=== PATIENT | female | born 2000 | race Caucasian/White ===

== ENCOUNTER 2023-01-22 11:39 | Emergency (ER) | payer BC ==
[2023-01-22 12:16] LABS: HCG UR QUAL NEGATIVE
[2023-01-22 12:17] LABS: CLARITY,URINE HAZY (CLEAR)
[2023-01-22 12:18] LABS: BILIRUBIN,URINE NEGATIVE (NEGATIVE); GLUCOSE, URINE (UA) NEGATIVE (NEGATIVE); KETONES,URINE (UA) NEGATIVE (NEGATIVE); LEUKOCYTE ESTERASE, URINE MODERATE (NEGATIVE); NITRITE,URINE NEGATIVE (NEGATIVE); OCCULT BLOOD,URINE LARGE (NEGATIVE); PROTEIN,URINE NEGATIVE (NEGATIVE); UROBILINOGEN,URINE 0.2 (NORMAL) E.U./dL (NORMAL)
[2023-01-22 12:32] LABS: BACTERIA,URINE Moderate /HPF (None Seen); SQUAMOUS EPITHELIAL CELL,UR MANY Squamous (<= Few); WBC,URINE >25 /HPF (0-5)
--- NOTE | 2023-01-22 12:34 | ED Physician Documentation ---
PD HPI FEMALE - Stated complaint Stated Complaint: - Chief complaint Chief Complaint: Abd Pain - History obtained from History obtained from: Patient - History of Present Illness Timing - onset: How many days ago (few) Timing - duration: Days (few) Timing - details: Gradual onset, Still present, Waxing and waning Associated symptoms: Vaginal bleeding (lightly), Dysuria (last week but improved on Keflex.). No: Fever, Vaginal discharge Contributing factors: Sexually active. No: control, Exposed to STD Recently seen: Clinic (had dysuria last week and Dx with UTI, on Keflex with improved symtoms. Now with Left pelvic pains for few days.) Review of Systems Constitutional: denies: Fever, Chills GI: denies: Vomiting, Constipation, Diarrhea PD PAST MEDICAL HISTORY - Present Medications Home Medications: Ambulatory Orders Medication Instructions Recorded Confirmed cephALEXin [Keflex] 500 mg PO Q6H 01/22/23 01/22/23 - Allergies Allergies/Adverse Reactions: Allergies Allergy/AdvReac Type Severity Reaction Status Date / Time No Known Drug Allergies Allergy Verified 01/22/23 11:46 PD ED PE NORMAL - Vitals Vital signs reviewed: Yes - General General: Alert and oriented X 3, No acute distress, Well developed/nourished - Abdomen Abdomen: Normal bowel sounds, Soft, Non distended, No organomegaly, Other (tender LLQ focally with some guarding but no percussion nor rebound tenderness. Right lower minimally tender. ) - Female Female : Deferred - Derm Derm: Normal color, Warm and dry - Neuro Neuro: Alert and oriented X 3, Normal speech Results - Vitals Vitals: Vital Signs - 24 hr 01/22/23 01/22/23 11:42 15:06 Temperature 36.5 C Heart Rate 76 80 Respiratory 16 16 Rate Blood Pressure 135/80 H 113/82 H O2 Saturation 95 100 Oxygen O2 Source Room air - Labs Labs: Laboratory Tests 01/22/23 01/22/23 11:38 11:38 Urine Color YELLOW Urine Clarity HAZY Urine pH 7.0 Ur Specific [place] 1.020 Urine Protein NEGATIVE Urine Glucose (UA) NEGATIVE Urine Ketones NEGATIVE Urine Occult Blood LARGE H Urine Nitrite NEGATIVE Urine Bilirubin NEGATIVE Urine Urobilinogen 0.2 (NORMAL) Ur Leukocyte Esterase MODERATE H Urine RBC 11-25 H Urine WBC >25 H Ur Squamous Epith Cells MANY Squamous H Urine Bacteria Moderate H Ur Microscopic Review INDICATED Urine Culture Comments NOT INDICATED Urine HCG, Qual NEGATIVE - Rads (name of study) pelvic US Relevant Findings:: Other (initial report from Tech is resolving cysts left side. Normal blood flow. ) PD Medical Decision Making - ED course Complexity details: reviewed results (HCG negative. Ultrasound showing left cysts small. No free fluid on report. Normal blood flow. ), considered differential (pain left pelvic area. Can get HCG as she had period last 2 months ago. Can get US to eval ovaries. No intestinal symptoms so I do not feel CT needed. Currently being treated for UTI. ), d/w patient Departure - Departure Disposition: 01 Home, Self Care Clinical Impression: Lower abdominal pain Ovarian cyst Qualifiers: Laterality: left Qualified Code(s): N83.202 - Unspecified ovarian cyst, left side Condition: Stable Record reviewed to determine appropriate education?: Yes Instructions: ED Cyst Ovarian Comments: Your test was negative. The pelvic ultrasound showed what appeared to be a small resolving ovarian cyst on that side. It likely had a small amount of leaking/deflating with a small amount of free fluid around it. There was good blood flow to the ovary and no other abnormality seen. At this point I would suggest just some regular anti-inflammatories such as ibuprofen or naproxen 2 to 3 tablets twice daily with food for the next 3 to 5 days. Add Tylenol every 4-6 hours if needed for pain. I would anticipate improvement over the next few days. Follow-up with your primary care or return to the ER if not improving or worsening. Forms: PCP List Discharge Date/Time: 01/22/23 15:16
[2023-01-22 15:19] VITALS: BP 113/82; O2SAT 100
--- NOTE | 2023-01-22 15:37 | Ultrasound Report ---
PROCEDURE: Pelvic w/Doppler Complete INDICATIONS: pelvic pain, L TECHNIQUE: Transabdominal images were obtained of the pelvis using grayscale and color Doppler images . Spectral Doppler also obtained. COMPARISON: None FINDINGS: Uterus: 7.5 x 3.6 x 4.8 cm. Estimated volume is 68 cc. Anteverted positioning. Homogenous echotexture . Endometrium measures 7 mm, within normal limits for age. Ovaries: Right ovary measures a volume of 8 cc. Left ovary measures a volume of 14 cc. Physiologic ap pearing cysts. Color and spectral Doppler: flows are documented Other: No pathologic free fluid. IMPRESSION: No evidence of ovarian torsion. Physiologic appearing uterus on transabdominal evaluation. Reviewed by: Gurdeep Crespo MD on 01/22/2023 3:36 PM PDT Approved by: Gurdeep Crespo MD on 01/22/2023 3:36 PM PDT Station ID: [id number]
== END 2023-01-22 15:16 | disposition home or self-care (01) ==
LOC: ED 11:39
DX: N83.202 Unspecified ovarian cyst, left side (principal)
CPT/HCPCS: 81001; 81003; 81025; 87086; 93975; 99283; 99284

== ENCOUNTER 2023-01-28 17:08 | Emergency (ER) | payer BC ==
[2023-01-28 17:16] VITALS: BP 136/68; O2SAT 99
[2023-01-28] MEDS ORDERED: SODIUM CHLORIDE 0.9% 1,000 ML IV STA (17:32)
[2023-01-28 17:35] LABS: BASOPHILS % (AUTO) 0.5 %; EOSINOPHILS # (AUTO) 0.1 10^3/uL (0.0-0.7); EOSINOPHILS % (AUTO) 1.5 %; HCT - HEMATOCRIT 40.6 % (37.0-47.0); HGB - HEMOGLOBIN 13.8 g/dL (12.0-16.0); LYMPHOCYTES # (AUTO) 2.8 10^3/uL (1.5-3.5); LYMPHOCYTES % (AUTO) 35.7 %; MEAN CORPUSCULAR HEMOGLOBIN 27.9 pg (27.0-31.0); MEAN CORPUSCULAR VOLUME 82.2 fL (81.0-99.0); MEAN PLATELET VOLUME 8.6 fL (7.9-10.8); MONOCYTES # (AUTO) 0.7 10^3/uL (0.0-1.0); MONOCYTES % (AUTO) 8.2 %; NEUTROPHILS # (AUTO) 4.3 10^3/uL (1.5-6.6); PLT - PLATELET COUNT 260 10^3/uL (130-450); RED BLOOD COUNT 4.94 10^6/uL (4.20-5.40); RED CELL DISTRIBUTION WIDTH 12.2 % (12.0-15.0); WHITE BLOOD COUNT 7.9 x10^3/uL (4.8-10.8)
[2023-01-28 17:35] LABS: BILIRUBIN,URINE NEGATIVE (NEGATIVE); GLUCOSE, URINE (UA) NEGATIVE (NEGATIVE); KETONES,URINE (UA) NEGATIVE (NEGATIVE); LEUKOCYTE ESTERASE, URINE NEGATIVE (NEGATIVE); NITRITE,URINE NEGATIVE (NEGATIVE); OCCULT BLOOD,URINE LARGE (NEGATIVE); PH,URINE 5.5 PH (5.0-7.5); PROTEIN,URINE TRACE mg/dL (NEGATIVE); UROBILINOGEN,URINE 0.2 (NORMAL) E.U./dL (NORMAL)
[2023-01-28 17:41] LABS: CLARITY,URINE CLEAR (CLEAR); HCG UR QUAL NEGATIVE
[2023-01-28 17:42] LABS: BACTERIA,URINE Moderate /HPF (None Seen); SQUAMOUS EPITHELIAL CELL,UR MANY Squamous (<= Few)
[2023-01-28 17:52] LABS: ALBUMIN 4.3 g/dL (3.2-5.5); ALBUMIN/GLOBULIN RATIO 1.5 (1.0-2.2); BILIRUBIN,TOTAL 0.5 mg/dL (0.2-1.0); CALCIUM 9.4 mg/dL (8.5-10.3); CREATININE 0.5 mg/dL (0.6-1.3); POTASSIUM 3.7 mmol/L (3.5-4.5); TOTAL PROTEIN 7.2 g/dL (6.4-8.9)
[2023-01-28] MEDS ORDERED: TRANEXAMIC ACID 1,000 MG in SODIUM CHLORIDE 0.9% 100ML 100 ML IV STA (18:08)
--- NOTE | 2023-01-28 18:27 | ED Physician Documentation ---
History of Present Illness - Stated complaint Stated Complaint: - Chief complaint Chief Complaint: Abd Pain - History obtained from History obtained from: Patient - History of Present Illness Timing: How many weeks ago (1) Pain level max: 0 Pain level now: 0 - Additonal information Additional information: 22-year-old female presents to the emergency department stating that for about the past week she has had vaginal bleeding. She states that it she had a light menses about 3 weeks ago, but now has been bleeding fairly steadily for about 6 days. She uses several pads per day. She is not lightheaded or dizzy. She recently moved here from [place]. She was seen here last week and had a pelvic ultrasound which was normal except for a left-sided ovarian cyst. She is not having any significant pelvic pain, more of the bleeding. No change in sexual partners. No STD exposure. Review of Systems Constitutional: denies: Fever, Chills Respiratory: denies: Cough GI: denies: Nausea, Vomiting, Diarrhea : denies: Dysuria, Frequency, Hesitancy, Now EGA Skin: denies: Rash Musculoskeletal: denies: Neck pain, Back pain Neurologic: denies: Headache PD PAST MEDICAL HISTORY - Past Medical History Past Medical History: Yes Cardiovascular: High cholesterol Respiratory: None Neuro: None Endocrine/Autoimmune: None GI: None HEAD NURSE: Ovarian cysts : None HEENT: None Psych: None Musculoskeletal: None Derm: None - Past Surgical History Past Surgical History: Yes General: Appendectomy - Present Medications Home Medications: Ambulatory Orders Medication Instructions Recorded Confirmed cephALEXin [Keflex] 500 mg PO Q6H 01/22/23 01/28/23 Tranexamic Acid 1,300 mg PO TID PRN #30 tablet 01/28/23 - Allergies Allergies/Adverse Reactions: Allergies Allergy/AdvReac Type Severity Reaction Status Date / Time No Known Drug Allergies Allergy Verified 01/28/23 17:11 - Living Situation Living Situation: reports: With family Living Arrangement: reports: At home - Social History Does the pt smoke?: No Smoking Status: Never smoker Does the pt drink ETOH?: Yes Does the pt have substance abuse?: No - Immunizations Immunizations are current?: Yes PD ED PE NORMAL - Vitals Vital signs reviewed: Yes - General General: Alert and oriented X 3, No acute distress - HEENT HEENT: Moist mucous membranes - Neck Neck: Supple, no meningeal sign - Cardiac Cardiac: RRR, Strong equal pulses - Respiratory Respiratory: No respiratory distress, Clear bilaterally - Abdomen Abdomen: Normal bowel sounds, Soft, Non tender, Non distended - Derm Derm: Warm and dry - Extremities Extremities: No edema - Neuro Neuro: Alert and oriented X 3 - Psych Psych: Normal mood, Normal affect Results - Vitals Vitals: Vital Signs - 24 hr 01/28/23 17:11 Temperature 36.8 C Heart Rate 77 Respiratory 16 Rate Blood Pressure 136/68 H O2 Saturation 99 Oxygen O2 Source Room air - Labs Labs: Laboratory Tests 01/28/23 01/28/23 01/28/23 17:18 17:25 17:25 WBC 7.9 RBC 4.94 Hgb 13.8 Hct 40.6 MCV 82.2 MCH 27.9 MCHC 34.0 RDW 12.2 Plt Count 260 MPV 8.6 Neut # (Auto) 4.3 Lymph # (Auto) 2.8 Trigg # (Auto) 0.7 Eos # (Auto) 0.1 Baso # (Auto) 0.0 Absolute Nucleated RBC 0.00 Nucleated RBC % 0.0 Sodium 138 Potassium 3.7 Chloride 107 Carbon Dioxide 26 Anion Gap 5.0 L BUN 9 Creatinine 0.5 L Estimated GFR (MDRD) 156 Glucose 122 H Calcium 9.4 Total Bilirubin 0.5 AST 14 ALT 10 Alkaline Phosphatase 74 Total Protein 7.2 Albumin 4.3 Globulin 2.9 Albumin/Globulin Ratio 1.5 Lipase 28 Urine Color YELLOW Urine Clarity CLEAR Urine pH 5.5 Ur Specific [place] >=1.030 H Urine Protein TRACE Urine Glucose (UA) NEGATIVE Urine Ketones NEGATIVE Urine Occult Blood LARGE H Urine Nitrite NEGATIVE Urine Bilirubin NEGATIVE Urine Urobilinogen 0.2 (NORMAL) Ur Leukocyte Esterase NEGATIVE Urine RBC 11-25 H Urine WBC 4-5 Ur Squamous Epith Cells MANY Squamous H Urine Bacteria Moderate H Ur Microscopic Review INDICATED Urine Culture Comments NOT INDICATED Urine HCG, Qual NEGATIVE PD Medical Decision Making - ED course Complexity details: reviewed results, re-evaluated patient, considered differential, d/w patient, d/w family ED course: 22-year-old female with dysfunctional uterine bleeding. She did have a light menses last month and heavier this month. No significant lab abnormalities. No abnormal vital signs. No significant bleeding here. Had a recent ultrasound, no indication to repeat today. She does not want to be on hormonal control, we will trial her on TXA. Patient will follow-up with gynecology for further care. Patient counseled regarding signs and symptoms for which I believe and urgent re-evaluation would be necessary. Patient with good understanding of and agreement to plan and is comfortable going home at this time This document was made in part using voice recognition software. While efforts are made to proofread this document, sound alike and grammatical errors may occur. Departure - Departure Disposition: Home, Self Care Clinical Impression: Dysfunctional uterine bleeding Condition: Good Instructions: ED Bleed Irregular Vaginal Follow-Up: your,doctor in 1 week [Other] [facility] [Provider Group] Prescriptions: Tranexamic Acid 1,300 mg PO TID PRN #30 tablet PRN Reason: vaginal bleeding Comments: Your blood counts did not show any significant abnormalities today. Your urinalysis appears consistent with a menstrual cycle. Your prior ultrasound showed a left-sided ovarian cyst but a normal uterus and normal right ovary. Please follow-up with your primary care provider or gynecology for further care. Please return if you worsen. Your prescriptions were sent to [facility] in [place]. Forms: PCP List Discharge Date/Time: 01/28/23 18:48
== END 2023-01-28 18:48 | disposition home or self-care (01) ==
LOC: ED 17:08
DX: N93.8 Other specified abnormal uterine and vaginal bleeding (principal); E78.00 Pure hypercholesterolemia, unspecified
CPT/HCPCS: 36415; 80053; 81001; 81003; 81025; 83690; 85025; 87086; 96374; 99283

== ENCOUNTER 2023-02-11 01:17 | Emergency (ER) | payer BC | END 2023-02-11 02:48 | disposition left against medical advice (07) | LOC: ED 01:17 | DX: Z53.21 Procedure and treatment not carried out due to patient leaving prior to being seen by health care provider (principal) ==

== ENCOUNTER 2023-03-28 13:32 | Emergency (ER) | payer BC ==
[2023-03-28 13:39] VITALS: O2SAT 99
[2023-03-28 13:51] LABS: BILIRUBIN,URINE NEGATIVE (NEGATIVE); GLUCOSE, URINE (UA) NEGATIVE (NEGATIVE); KETONES,URINE (UA) NEGATIVE (NEGATIVE); LEUKOCYTE ESTERASE, URINE NEGATIVE (NEGATIVE); NITRITE,URINE NEGATIVE (NEGATIVE); OCCULT BLOOD,URINE NEGATIVE (NEGATIVE); PROTEIN,URINE NEGATIVE (NEGATIVE); UROBILINOGEN,URINE 1 (NORMAL) E.U./dL (NORMAL)
[2023-03-28 13:52] LABS: CLARITY,URINE CLEAR (CLEAR); HCG UR QUAL NEGATIVE
[2023-03-28 13:55] LABS: BASOPHILS # (AUTO) 0.1 10^3/uL (0.0-0.1); BASOPHILS % (AUTO) 0.7 %; EOSINOPHILS # (AUTO) 0.1 10^3/uL (0.0-0.7); EOSINOPHILS % (AUTO) 1.3 %; HCT - HEMATOCRIT 41.3 % (37.0-47.0); HGB - HEMOGLOBIN 13.7 g/dL (12.0-16.0); LYMPHOCYTES % (AUTO) 29.3 %; MEAN CORPUSCULAR HEMOGLOBIN 27.3 pg (27.0-31.0); MEAN CORPUSCULAR HGB CONC 33.2 g/dL (32.0-36.0); MEAN CORPUSCULAR VOLUME 82.3 fL (81.0-99.0); MEAN PLATELET VOLUME 8.5 fL (7.9-10.8); MONOCYTES # (AUTO) 0.7 10^3/uL (0.0-1.0); MONOCYTES % (AUTO) 9.8 %; NEUTROPHILS % (AUTO) 58.8 %; PLT - PLATELET COUNT 253 10^3/uL (130-450); RED BLOOD COUNT 5.02 10^6/uL (4.20-5.40); RED CELL DISTRIBUTION WIDTH 12.4 % (12.0-15.0); WHITE BLOOD COUNT 6.8 x10^3/uL (4.8-10.8)
[2023-03-28] MEDS ORDERED: IBUPROFEN 600 MG TABLET PO STA (14:10)
[2023-03-28] MEDS ORDERED: oxyCODONE 5 MG TABLET PO STA (14:10)
--- NOTE | 2023-03-28 14:12 | ED Physician Documentation ---
PD HPI ABD PAIN - Stated complaint Stated Complaint: ABD PX/BLOATING - Chief complaint Chief Complaint: Abd Pain - History obtained from History obtained from: Patient - Additional information Additional information: 30-year-old woman with history of ovarian cyst and remote appendectomy presents with sudden onset pelvic pain starting during intercourse about an hour ago. She is late on her menses but took a test this morning that was negative. She feels bloated with this. She was fine prior to having intercourse this morning. Denies bleeding or abnormal discharge. PD PAST MEDICAL HISTORY - Past Medical History Cardiovascular: High cholesterol Respiratory: None Neuro: None Endocrine/Autoimmune: None GI: None COPPER ETCHER: Ovarian cysts : None HEENT: None Psych: None Musculoskeletal: None Derm: None - Past Surgical History Past Surgical History: Yes General: Appendectomy - Present Medications Home Medications: Ambulatory Orders Medication Instructions Recorded Confirmed Ibuprofen [Motrin] 600 mg PO Q6H PRN #30 tab 03/28/23 Ondansetron Odt [Zofran] 4 mg TL Q6H PRN #10 tablet 03/28/23 Oxycodone HCl/Acetaminophen 1 - 2 each PO Q6H PRN #14 tablet 03/28/23 [Percocet 5-325 mg Tablet] - Allergies Allergies/Adverse Reactions: Allergies Allergy/AdvReac Type Severity Reaction Status Date / Time No Known Drug Allergies Allergy Verified 01/28/23 17:11 - Social History Does the pt smoke?: No Smoking Status: Never smoker Does the pt drink ETOH?: Yes Does the pt have substance abuse?: No - Immunizations Immunizations are current?: Yes PD ED PE NORMAL - Vitals Vital signs reviewed: Yes - General General: Alert and oriented X 3, No acute distress - Abdomen Abdomen: Normal bowel sounds, Soft, Other (Modest pelvic tenderness without surgical signs, winces with motion changes but comfortable at rest.) - Neuro Neuro: Alert and oriented X 3, Normal speech Results - Vitals Vitals: Vital Signs - 24 hr 03/28/23 03/28/23 03/28/23 13:34 14:58 16:24 Temperature 36.6 C Heart Rate 79 Respiratory 18 17 19 Rate Blood Pressure 104/54 L O2 Saturation 99 Oxygen O2 Source Room air - Labs Labs: Laboratory Tests 03/28/23 03/28/23 03/28/23 13:45 13:47 13:47 WBC 6.8 RBC 5.02 Hgb 13.7 Hct 41.3 MCV 82.3 MCH 27.3 MCHC 33.2 RDW 12.4 Plt Count 253 MPV 8.5 Neut # (Auto) 4.0 Lymph # (Auto) 2.0 Glynn # (Auto) 0.7 Eos # (Auto) 0.1 Baso # (Auto) 0.1 Absolute Nucleated RBC 0.00 Nucleated RBC % 0.0 Sodium 136 Potassium 3.8 Chloride 103 Carbon Dioxide 25 Anion Gap 8.0 BUN 13 Creatinine 0.5 L Estimated GFR (MDRD) 156 Glucose 99 Calcium 9.7 Total Bilirubin 0.6 AST 14 ALT 8 L Alkaline Phosphatase 71 Total Protein 7.7 Albumin 4.6 Globulin 3.1 Albumin/Globulin Ratio 1.5 Lipase 23 Urine Color YELLOW Urine Clarity CLEAR Urine pH 8.0 H Ur Specific [place] 1.015 Urine Protein NEGATIVE Urine Glucose (UA) NEGATIVE Urine Ketones NEGATIVE Urine Occult Blood NEGATIVE Urine Nitrite NEGATIVE Urine Bilirubin NEGATIVE Urine Urobilinogen 1 (NORMAL) Ur Leukocyte Esterase NEGATIVE Ur Microscopic Review NOT INDICATED Urine Culture Comments NOT INDICATED Urine HCG, Qual NEGATIVE PD Medical Decision Making - ED course ED course: 22-year-old woman presents with pelvic pain starting during intercourse this morning. Normal CBC, CMP, UA, negative test. Preliminary report from housekeeping worker with bilateral ovarian cysts, larger complex 1 on the right and smaller hemorrhagic cyst on the left with free fluid. Feeling better after Percocet and Motrin but did require some nausea medication as well. Follow-up advised. Departure - Departure Disposition: 01 Home, Self Care Clinical Impression: Ovarian cyst Condition: Good Record reviewed to determine appropriate education?: Yes Instructions: ED Cyst Ovarian Prescriptions: Ibuprofen [Motrin] 600 mg PO Q6H PRN #30 tab PRN Reason: Pain Oxycodone HCl/Acetaminophen [Percocet 5-325 mg Tablet] 1 - 2 each PO Q6H PRN #14 tablet PRN Reason: pain Ondansetron Odt [Zofran] 4 mg TL Q6H PRN #10 tablet PRN Reason: Nausea / Vomiting Comments: You have a larger cyst on the right and a smaller one on the left. It looks like the left 1 is the one that is bleeding and hurting you. Recommend following up with gynecology and consideration for repeat ultrasound in about 6 weeks to make sure the right one resolves. I sent your prescription electronically to [facility] in [place] call your doctor to arrange a follow- up appointment, make the next available appointment. In the interim, return anytime if worse or if new symptoms develop. I am prescribing a short course of narcotic pain medication for you. These are potentially dangerous and addictive medications that should be used carefully. These medications may constipate you. Take an [id number] stool softener (docusate) twice daily with plenty of water while taking these medications. If you go 24 hours without a bowel movement, take [id number] miralax, per package instructions. Do not drink or drive while taking these medications. If you received narcotic or sedating medications while in the emergency department, do not drive for 24 hours. Store this medication in a safe, secure place and out of reach of children. It is a violation of federal law to give or sell this medication to another person or to use in a manner other than prescribed. The ED will not refill narcotic prescriptions, including prescriptions lost or stolen. To dispose of unwanted medications: 1. [facility] provides a drop box for medication in pill form only (no liquids) 8:00 am to 4:30 p.m. Saturday-Saturday in the lobby of the [facility], [address] [place] [address]. Empty pills into ziplock bag before disposal. Call [phone] for information. 2.[employer] is a free service available to all [facility] residents. Go to [email or web address] Note that many narcotic pain relievers also contain Tylenol/acetaminophen. Please ensure that your total dose of acetaminophen from all sources does not exceed 3 g (3000 mg) per day. . Forms: PCP List
[2023-03-28 14:13] LABS: ALBUMIN 4.6 g/dL (3.2-5.5); ALBUMIN/GLOBULIN RATIO 1.5 (1.0-2.2); BILIRUBIN,TOTAL 0.6 mg/dL (0.2-1.0); CALCIUM 9.7 mg/dL (8.5-10.3); CREATININE 0.5 mg/dL (0.6-1.3); POTASSIUM 3.8 mmol/L (3.5-4.5); TOTAL PROTEIN 7.7 g/dL (6.4-8.9)
[2023-03-28] MEDS ORDERED: ONDANSETRON ODT 4 MG TABLET TL STA ×2 (15:54→16:36)
--- NOTE | 2023-03-28 16:41 | Ultrasound Report ---
PROCEDURE: Pelvic w/Doppler Complete INDICATIONS: pelvic pain TECHNIQUE: Real-time scanning was performed of the pelvic organs, with image documentation. Additional endovagi nal scanning was necessary due to incomplete visualization of the adnexal and endometrial structures by transabdominal scanning. COMPARISON: None. FINDINGS: Uterus: Uterus is anteverted and normal in size at 6.3 x 3.8 x 4.6 cm. The myometrium is homogeneou s. The endometrium measures 2.2 mm in combined thickness. Small amount of fluid and debris is noted within endometrium. No internal vascularity is seen. Ovaries: The right ovary measures 5.7 x 3.8 x 5 cm, with a calculated ovarian volume of 56.9 cc. Th e left ovary measures 4.5 x 3.5 x 3 cm, with a calculated ovarian volume of 25.2 cc. There is suggest ion of a complex cyst in right ovary measures 4.5 x 2 x 2.4 cm in size. Possible hemorrhagic cyst is noted in left ovary measures 2.2 x 2.6 x 2 cm in size. Less than 12 follicles can be seen in each ova ry. No adnexal masses are seen. No cystic lesions measuring greater than 3 cm. Other: Small amount of free fluid is seen in posterior cul-de-sac. IMPRESSION: 1. Complex cyst in right ovary measures 4.5 x 2 x 2.4 cm in size. Possible hemorrhagic cyst in left o vary measures 2.2 x 2.6 x 2 cm in size. No gross solid-appearing ovarian lesion. Ultrasound follow-up in 4-6 weeks is recommended. 2. Small amount of fluid within endometrium and containing some internal debris. No vascular mass is seen. 3. Small amount of free fluid in posterior cul-de-sac. Reviewed by: Dickson Stern MD on 03/28/2023 4:39 PM PST Approved by: Dickson Stern MD on 03/28/2023 4:39 PM PST Station ID: [id number]
[2023-03-28 16:48] VITALS: BP 106/70
== END 2023-03-28 16:45 | disposition home or self-care (01) ==
LOC: ED 13:32
DX: N83.202 Unspecified ovarian cyst, left side (principal); N83.201 Unspecified ovarian cyst, right side; E78.00 Pure hypercholesterolemia, unspecified
CPT/HCPCS: 36415; 76856; 80053; 81003; 81025; 83690; 85025; 93975; 99284; A9270; Q0162; 81001; 87086

== ENCOUNTER 2023-04-03 15:20 | Emergency (ER) | payer BC, OTHER ==
[2023-04-03 15:51] LABS: BILIRUBIN,URINE NEGATIVE (NEGATIVE); GLUCOSE, URINE (UA) NEGATIVE (NEGATIVE); KETONES,URINE (UA) TRACE mg/dL (NEGATIVE); LEUKOCYTE ESTERASE, URINE NEGATIVE (NEGATIVE); NITRITE,URINE POSITIVE (NEGATIVE); OCCULT BLOOD,URINE LARGE (NEGATIVE); PROTEIN,URINE NEGATIVE (NEGATIVE); UROBILINOGEN,URINE 0.2 (NORMAL) E.U./dL (NORMAL)
[2023-04-03 15:53] LABS: CLARITY,URINE CLOUDY (CLEAR); HCG UR QUAL NEGATIVE
[2023-04-03 15:54] LABS: BASOPHILS % (AUTO) 0.4 %; EOSINOPHILS # (AUTO) 0.1 10^3/uL (0.0-0.7); EOSINOPHILS % (AUTO) 1.6 %; HCT - HEMATOCRIT 35.7 % (37.0-47.0); HGB - HEMOGLOBIN 11.5 g/dL (12.0-16.0); LYMPHOCYTES # (AUTO) 2.5 10^3/uL (1.5-3.5); LYMPHOCYTES % (AUTO) 33.2 %; MEAN CORPUSCULAR HEMOGLOBIN 26.9 pg (27.0-31.0); MEAN CORPUSCULAR HGB CONC 32.2 g/dL (32.0-36.0); MEAN CORPUSCULAR VOLUME 83.4 fL (81.0-99.0); MEAN PLATELET VOLUME 8.6 fL (7.9-10.8); MONOCYTES # (AUTO) 0.5 10^3/uL (0.0-1.0); MONOCYTES % (AUTO) 6.6 %; NEUTROPHILS # (AUTO) 4.4 10^3/uL (1.5-6.6); NEUTROPHILS % (AUTO) 57.9 %; PLT - PLATELET COUNT 263 10^3/uL (130-450); RED BLOOD COUNT 4.28 10^6/uL (4.20-5.40); RED CELL DISTRIBUTION WIDTH 12.8 % (12.0-15.0); WHITE BLOOD COUNT 7.5 x10^3/uL (4.8-10.8)
[2023-04-03 16:00] LABS: BACTERIA,URINE Many /HPF (None Seen); RBC,URINE TNTC /HPF (0-5); SQUAMOUS EPITHELIAL CELL,UR FEW Squamous (<= Few); WBC,URINE 0-3 /HPF (0-5)
[2023-04-03 16:04] VITALS: O2SAT 100
[2023-04-03 16:04] LABS: ALBUMIN 4.3 g/dL (3.2-5.5); ALBUMIN/GLOBULIN RATIO 1.7 (1.0-2.2); BILIRUBIN,TOTAL 0.4 mg/dL (0.2-1.0); CALCIUM 9.2 mg/dL (8.5-10.3); CREATININE 0.6 mg/dL (0.6-1.3); POTASSIUM 3.7 mmol/L (3.5-4.5); TOTAL PROTEIN 6.8 g/dL (6.4-8.9)
[2023-04-03] MEDS ORDERED: KETOROLAC 15 MG/ML VIAL IVP STA (17:01)
[2023-04-03] MEDS ORDERED: ONDANSETRON 4 MG/2 ML VIAL IVP STA (17:01)
[2023-04-03] MEDS ORDERED: HYDROmorphone 1 MG/ML CARPUJECT IVP STA (17:01)
--- NOTE | 2023-04-03 17:04 | ED Physician Documentation ---
PD HPI ABD PAIN - Stated complaint Stated Complaint: PELVIC PX - Chief complaint Chief Complaint: Abd Pain - History obtained from History obtained from: Patient - Additional information Additional information: 22-year-old woman who is previously healthy has been having trouble with ovarian cysts over the last couple of months. Current pain has been going on for 6 days and is severe and is in the right pelvis. She tried oxycodone for it but immediately vomits after taking that and also gets quite nauseous after hydrocodone. She has vaginal bleeding with this. 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 : None HEENT: None Psych: None Musculoskeletal: None Derm: None - Past Surgical History Past Surgical History: Yes General: Appendectomy - Present Medications Home Medications: Ambulatory Orders Medication Instructions Recorded Confirmed Ondansetron Odt [Zofran] 4 mg TL Q6H PRN #10 tablet 03/28/23 04/03/23 Oxycodone HCl/Acetaminophen 1 - 2 each PO Q6H PRN #14 tablet 03/28/23 04/03/23 [Percocet 5-325 mg Tablet] Metoclopramide [Reglan] 10 mg PO PRN PRN #20 tablet 04/03/23 Norgestimate-Ethinyl Estradiol 1 each PO DAILY #28 tablet 04/03/23 [Sprintec 28 Day Tablet] ondansetron HCL [Ondansetron HCl] 8 mg PO Q6HR PRN #20 tablet 04/03/23 oxyCODONE [Roxicodone] 5 mg PO Q4H PRN #15 tablet 04/03/23 - Allergies Allergies/Adverse Reactions: Allergies Allergy/AdvReac Type Severity Reaction Status Date / Time No Known Drug Allergies Allergy Verified 01/28/23 17:11 - Social History Does the pt smoke?: No Smoking Status: Never smoker Does the pt drink ETOH?: Yes Does the pt have substance abuse?: No - Immunizations Immunizations are current?: Yes PD ED PE NORMAL - Vitals Vital signs reviewed: Yes - General General: Alert and oriented X 3, No acute distress - Abdomen Abdomen: Normal bowel sounds, Soft, Other (Tender in the right pelvis without surgical signs) - Neuro Neuro: Alert and oriented X 3, Normal speech Results - Vitals Vitals: Vital Signs - 24 hr 04/03/23 04/03/23 15:32 19:15 Temperature 36.1 C L Heart Rate 100 85 Respiratory 16 18 Rate Blood Pressure 126/65 126/67 O2 Saturation 100 100 Oxygen O2 Source Room air - Labs Labs: Laboratory Tests 04/03/23 04/03/23 04/03/23 15:40 15:47 15:47 WBC 7.5 RBC 4.28 Hgb 11.5 L Hct 35.7 L MCV 83.4 MCH 26.9 L MCHC 32.2 RDW 12.8 Plt Count 263 MPV 8.6 Neut # (Auto) 4.4 Lymph # (Auto) 2.5 Jay # (Auto) 0.5 Eos # (Auto) 0.1 Baso # (Auto) 0.0 Absolute Nucleated RBC 0.00 Nucleated RBC % 0.0 Sodium 137 Potassium 3.7 Chloride 106 Carbon Dioxide 25 Anion Gap 6.0 BUN 9 Creatinine 0.6 Estimated GFR (MDRD) 126 Glucose 128 H Calcium 9.2 Total Bilirubin 0.4 AST 12 ALT 6 L Alkaline Phosphatase 60 Total Protein 6.8 Albumin 4.3 Globulin 2.5 Albumin/Globulin Ratio 1.7 Lipase 33 Urine Color YELLOW Urine Clarity CLOUDY Urine pH 6.0 Ur Specific [place] >=1.030 H Urine Protein NEGATIVE Urine Glucose (UA) NEGATIVE Urine Ketones TRACE Urine Occult Blood LARGE H Urine Nitrite POSITIVE H Urine Bilirubin NEGATIVE Urine Urobilinogen 0.2 (NORMAL) Ur Leukocyte Esterase NEGATIVE Urine RBC TNTC H Urine WBC 0-3 Ur Squamous Epith Cells FEW Squamous Urine Bacteria Many H Ur Microscopic Review INDICATED Urine Culture Comments INDICATED Urine HCG, Qual NEGATIVE PD Medical Decision Making - ED course ED course: 22-year-old woman presents with ovarian cyst pain. Ultrasound showing increased size of complex right ovarian cyst. She wanted surgery, discussed with her there was no need for emergent surgery but we did ask our AFFIRMATIVE ACTION OFFICER solar consultant, Dr. Alcides Staton to see her and he graciously did and is arranging for close follow-up and a surgical date for her. She was given divided doses of Toradol, Dilaudid, Zofran, and Reglan with improvement in her symptoms and passed a p.o. challenge. CBC showing mild anemia, CMP unremarkable. Urinalysis with a lot of blood, no white cells. She does have bacteriuria. I canceled the culture as she has no urinary symptoms and her presentation does not fit UTI. Departure - Departure Disposition: 01 Home, Self Care Clinical Impression: Ovarian cyst Qualifiers: Laterality: right Qualified Code(s): N83.201 - Unspecified ovarian cyst, right side Condition: Good Record reviewed to determine appropriate education?: Yes Instructions: ED Pelvic Pain [facility] Prescriptions: ondansetron HCL [Ondansetron HCl] 8 mg PO Q6HR PRN #20 tablet PRN Reason: Nausea / Vomiting Metoclopramide [Reglan] 10 mg PO PRN PRN #20 tablet PRN Reason: Nausea / Vomiting oxyCODONE [Roxicodone] 5 mg PO Q4H PRN #15 tablet PRN Reason: Severe Pain Norgestimate-Ethinyl Estradiol [Sprintec 28 Day Tablet] 1 each PO DAILY #28 tablet Comments: Dr. Staton sent the prescriptions to [facility] for you. Sounds like there is a good follow-up plan now with him, return for new or worsening symptoms. I am prescribing a short course of narcotic pain medication for you. These are potentially dangerous and addictive medications that should be used carefully. These medications may constipate you. Take an [id number] stool softener (docusate) twice daily with plenty of water while taking these medications. If you go 24 hours without a bowel movement, take [id number]-[id number] miralax, per package instructions. Do not drink or drive while taking these medications. If you received narcotic or sedating medications while in the emergency department, do not drive for 24 hours. Store this medication in a safe, secure place and out of reach of children. It is a violation of federal law to give or sell this medication to another person or to use in a manner other than prescribed. The ED will not refill narcotic prescriptions, including prescriptions lost or stolen. To dispose of unwanted medications: 1. [facility] provides a drop box for medication in pill form only (no liquids) 8:00 am to 4:30 p.m. Saturday-Saturday in the lobby of the [facility], [address] [place] [address]. Empty pills into ziplock bag before disposal. Call [phone] for information. 2.[employer] is a free service available to all [facility] residents. Go to [email or web address] Note that many narcotic pain relievers also contain Tylenol/acetaminophen. Please ensure that your total dose of acetaminophen from all sources does not exceed 3 g (3000 mg) per day. Forms: PCP List
[2023-04-03] MEDS ORDERED: MORPHINE 2 MG/ML CARPUJECT IVP STA (19:01)
[2023-04-03] MEDS ORDERED: METOCLOPRAMIDE 10 MG/2 ML VIAL IVP STA (19:43)
--- NOTE | 2023-04-03 19:43 | Ultrasound Report ---
PROCEDURE: Pelvic w/Doppler Complete INDICATIONS: R pelvic pain, known cyst, ?torsion TECHNIQUE: Transabdominal sonographic images were obtained of the pelvis. COMPARISON: 03/28/2023 FINDINGS: Uterus: 8.2 x 3.9 x 5.3 cm. Anteverted positioning. Endometrium measures 7 mm. Ovaries: Right ovary measures 117 cc. Increased size of complex cyst measuring 5.4 x 6 x 4.9 cm. A se cond cyst measures 3.1 x 3.3 cm. Left ovary measures 18 cc. Suspected thick walled follicle or hemorrhagic cyst measures 2.2 x 2.3 cm. Color and spectral Doppler: flows are documented Other: No pathologic free fluid. IMPRESSION: Increased size of right ovarian complex cyst, possibly hemorrhagic cysts. The larger one measures up to 6 cm. Color and spectral flows are currently documented. Continued clinical follow-up is warranted . Imaging follow-up can also be obtained in 6 weeks or sooner. Reviewed by: Gurdeep Crespo MD on 04/03/2023 7:42 PM PST Approved by: Gurdeep Crespo MD on 04/03/2023 7:42 PM PST Station ID: [id number]
--- NOTE | 2023-04-03 19:51 | CONSULTATION NOTE ---
Surgery Consult - Consult Date Consult Date: 04/03/23 - Chief Complaint Chief Complaint: Abdominal Pain - Home Meds/Allergies Allergies/Adverse Reactions: Allergies Allergy/AdvReac Type Severity Reaction Status Date / Time No Known Drug Allergies Allergy Verified 01/28/23 17:11 - Vital Signs Vital Signs: Last Vital Signs Temp 97.0 F L 04/03/23 15:32 Pulse 85 04/03/23 19:15 Resp 18 04/03/23 19:15 BP 126/67 04/03/23 19:15 Pulse Ox 100 04/03/23 19:15 O2 Flow Rate - Lab Results Result Diagrams: 04/03/23 15:47 04/03/23 15:47 - Consultation Note Consultation Note: HPI: Patient is a 22-year-old G0 presents today for pelvic pain. She has been seen several times for this previously. Her first episode was in January where she had some undiagnosed pelvic pain. She was seen last week again where she had what appeared to be bilateral ovarian cyst with a likely left ovarian hemorrhagic cyst. This is again demonstrated today. She has been troubled by this and pain medications are helpful when she can tolerate them, but frequently vomits. She mostly is ready for this to stop and is seeking surgical consultation. She is also having vaginal bleeding that does seem worse this month. Previously used tranexamic acid that seem to help. All other symptoms reviewed and were negative except per HPI. PMH Denies pertinent PSH Appendectomy SH Denies tobacco, drugs. Occasional alcohol use. Family History Noncontributory Allergies No drug drug allergies Medications Zofran, oxycodone Physical exam: General: Alert, oriented, uncomfortable appearing. Head: Normal cephalic atraumatic Eyes: PERRLA, extraocular motions intact. Respiratory: Normal rate of respiration. No accessory muscle use, normal respiratory effort. Cardiovascular: Regular rate and rhythm Abdomen: Soft, moderate tenderness in right lower quadrant. Extremities: Normal range of motion Neuro: Oriented x3. Normal movements Psych: Appropriate mood and affect. Normal judgment and insight Imaging: Pelvic ultrasound: Right complex ovarian cyst measuring 5.4 x 6.4 0.9 cm. A second cyst measures 3.1 x 3.3 cm. Left ovarian thick-walled follicle or hemorrhagic cyst measuring 2.2 x 2.3 cm. Plan 22-year-old G0 with hemorrhagic cyst 1. Hemorrhagic cyst: We discussed the etiology of ovarian cysts and that hemorrhagic cyst are often exquisitely painful. Usual course of action with this is NSAIDs, pain control, OCPs. Declines Depo-Provera although she had been off for several years previously with good result. -Patient discharged comfortable with plan and will follow-up in the office next week. Has pain medicines, antinausea medicine, OCPs. 2. Abnormal uterine bleeding -Will likely benefit from the OCPs. Can use NSAIDs for bleeding control as we ll. 3. Ovarian cyst: Her right-sided cyst has increased in size, now 5.4 x 6 x 4.9 cm. There is a second cyst measuring approximately 3.1 x 3.3 cm. We discussed that hemorrhagic cyst tend to resolve on their own and while this may be the case, there is a cystic component that may be benefit from removal. There is no emergency given the lack of torsion and and presence of good blood flow. -Patient has pending referral to [facility], and will likely follow-up with me next week. If that is the case, pain is still presenting, and cyst does not resolve, we will likely move towards ovarian cystectomy. -We did discuss the risks of surgery including damage to the organ which would increase the risk of premature menopause. Given her bilateral, possible hemorrhagic cysts, I would not want to operate on both. Especially on the left side, the small cyst may be causing significant pain, but at 2 cm, likely not problematic.
[2023-04-03 20:34] VITALS: BP 134/75
== END 2023-04-03 20:33 | disposition home or self-care (01) ==
LOC: ED 15:20
DX: N83.201 Unspecified ovarian cyst, right side (principal); N93.9 Abnormal uterine and vaginal bleeding, unspecified; R11.2 Nausea with vomiting, unspecified
CPT/HCPCS: 36415; 76856; 80053; 81001; 81025; 83690; 85025; 87077; 87086; 87181; 93975; 96374; 96375; 99284; 99285; J1170; J2765; 81003

== ENCOUNTER 2023-04-07 10:41 | Emergency (ER) | payer BC, OTHER ==
[2023-04-07 10:55] VITALS: BP 119/74; O2SAT 100
[2023-04-07] MEDS ORDERED: cefTRIAXone 500 MG VIAL IM STA (10:59)
[2023-04-07] MEDS ORDERED: LIDOCAINE 1% 2 ML VIAL MC ONE (10:59)
--- NOTE | 2023-04-07 11:06 | ED Physician Documentation ---
PD HPI FEMALE - Stated complaint Stated Complaint: - Chief complaint Chief Complaint: General - History obtained from History obtained from: Patient, Family - Additional information Additional information: Patient is a 22-year-old female presenting for evaluation of exposure to chlamydia. Patient's spouse was in the ER yesterday with symptoms and had a swab returned positive for chlamydia. Patient is requesting treatment. She was also recently seen in the ER a few days ago for pelvic pain with a known ovarian cyst and was seen by gynecology, Dr. Staton. She is awaiting a referral from the [facility] to follow-up with gynecology. Denies any worsening symptoms. Denies fever.Denies dysuria or vaginal discharge. 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 : None HEENT: None Psych: None Musculoskeletal: None Derm: None - Past Surgical History Past Surgical History: Yes General: Appendectomy - Present Medications Home Medications: Ambulatory Orders Medication Instructions Recorded Confirmed Ondansetron Odt [Zofran] 4 mg TL Q6H PRN #10 tablet 03/28/23 04/03/23 Oxycodone HCl/Acetaminophen 1 - 2 each PO Q6H PRN #14 tablet 03/28/23 04/03/23 [Percocet 5-325 mg Tablet] Metoclopramide [Reglan] 10 mg PO PRN PRN #20 tablet 04/03/23 Norgestimate-Ethinyl Estradiol 1 each PO DAILY #28 tablet 04/03/23 [Sprintec 28 Day Tablet] ondansetron HCL [Ondansetron HCl] 8 mg PO Q6HR PRN #20 tablet 04/03/23 oxyCODONE [Roxicodone] 5 mg PO Q4H PRN #15 tablet 04/03/23 Doxycycline Hyclate 100 mg PO BID #14 tab 04/07/23 - Allergies Allergies/Adverse Reactions: Allergies Allergy/AdvReac Type Severity Reaction Status Date / Time No Known Drug Allergies Allergy Verified 04/07/23 10:49 - Social History Does the pt smoke?: No Smoking Status: Never smoker Does the pt drink ETOH?: Yes Does the pt have substance abuse?: Yes Substance Use and Type: CBD oil / Products - Immunizations Immunizations are current?: Yes - POLST Patient has POLST: No PD ED PE NORMAL - General General: Alert and oriented X 3, No acute distress, Well developed/nourished - HEENT HEENT: Atraumatic, Moist mucous membranes, Pharynx benign - Respiratory Respiratory: No respiratory distress - Abdomen Abdomen: Normal bowel sounds, Soft, Non tender, Non distended - Derm Derm: Warm and dry - Neuro Neuro: Normal speech Results - Vitals Vitals: Vital Signs - 24 hr 04/07/23 10:44 Temperature 36.0 C L Heart Rate 76 Respiratory 16 Rate Blood Pressure 119/74 O2 Saturation 100 Oxygen O2 Source Room air PD Medical Decision Making - ED course ED course: Patient presenting for evaluation of chlamydia exposure. She has recently had some pelvic pain and was seen a few days ago with diagnosis of ovarian cyst. Her symptoms have not worsened. She denies fever, dysuria, vaginal discharge. Given known exposure will treat. Patient understands treatment plan as well as need for follow-up and concerning symptoms to return for.Patient has had 2 recent ultrasounds demonstrating an ovarian cyst. Does not have any symptoms here to suggest tubo-ovarian abscess. Departure - Departure Disposition: 01 Home, Self Care Clinical Impression: Exposure to STD Condition: Stable Instructions: STD Follow-Up: Alcides Staton MD [Provider Admit Priv/Credential] - Prescriptions: Doxycycline Hyclate 100 mg PO BID #14 tab Comments: Given your recent exposure, We have treated you for gonorrhea and chlamydia with antibiotics. I have also sent a prescription [facility] the [facility] to [facility] [place]. Please make sure to complete the course of antibiotics. Do not engage in sexual intercourse with your until you have both completed your respective antibiotic courses. Please have close follow-up with Dr. Staton regarding your ovarian cyst. Return to the ER if you develop any worsening symptoms such as fevers. Forms: PCP List Discharge Date/Time: 04/07/23 11:23
== END 2023-04-07 11:23 | disposition home or self-care (01) ==
LOC: ED 10:41
DX: Z20.2 Contact with and (suspected) exposure to infections with a predominantly sexual mode of transmission (principal); E78.00 Pure hypercholesterolemia, unspecified; Z79.899 Other long term (current) drug therapy; Z79.3 Long term (current) use of hormonal contraceptives
CPT/HCPCS: 96372; 99282; 99283

== ENCOUNTER 2023-04-23 13:54 | Outpatient (CLI) | payer BC, OTHER ==
[2023-04-23 14:16] LABS: BASOPHILS % (AUTO) 0.7 %; EOSINOPHILS # (AUTO) 0.1 10^3/uL (0.0-0.7); EOSINOPHILS % (AUTO) 2.2 %; HGB - HEMOGLOBIN 11.7 g/dL (12.0-16.0); LYMPHOCYTES # (AUTO) 2.7 10^3/uL (1.5-3.5); LYMPHOCYTES % (AUTO) 45.7 %; MEAN CORPUSCULAR HGB CONC 32.5 g/dL (32.0-36.0); MEAN PLATELET VOLUME 8.5 fL (7.9-10.8); MONOCYTES # (AUTO) 0.5 10^3/uL (0.0-1.0); MONOCYTES % (AUTO) 8.8 %; NEUTROPHILS # (AUTO) 2.5 10^3/uL (1.5-6.6); NEUTROPHILS % (AUTO) 42.4 %; PLT - PLATELET COUNT 267 10^3/uL (130-450); RED CELL DISTRIBUTION WIDTH 11.8 % (12.0-15.0); WHITE BLOOD COUNT 5.8 x10^3/uL (4.8-10.8)
== END 2023-04-23 13:55 | disposition home or self-care (01) ==
LOC: LAB 13:54
PROVIDERS: ATTEND Obstetrics & Gynecology
DX: Z01.812 Encounter for preprocedural laboratory examination (principal); N83.202 Unspecified ovarian cyst, left side; N83.201 Unspecified ovarian cyst, right side
CPT/HCPCS: 36415; 85025; 86850; 86900; 86901

== ENCOUNTER 2023-04-25 08:44 | Day surgery (SDC) | payer BC, OTHER ==
[2023-04-25] MEDS ORDERED: LACTATED RINGERS 1,000 ML IV ONE ×2 (09:01→12:25)
[2023-04-25 09:04] LABS: HCG UR QUAL NEGATIVE
[2023-04-25] MEDS ORDERED: ONDANSETRON 4 MG/2 ML VIAL ONE ×2 (09:54→10:41)
[2023-04-25] MEDS ORDERED: ROCURONIUM 50 MG/5 ML VIAL ONE (09:54)
[2023-04-25] MEDS ORDERED: DEXAMETHASONE 4 MG/ML VIAL ONE (09:54)
[2023-04-25] MEDS ORDERED: PROPOFOL 200 MG/20 ML VIAL IVP ONE ×2 (09:54→10:41)
[2023-04-25] MEDS ORDERED: MIDAZOLAM 2 MG/2 ML VIAL ONE (09:55)
[2023-04-25] MEDS ORDERED: fentaNYL 100 MCG/2 ML VIAL ONE (09:55)
[2023-04-25] MEDS ORDERED: LIDOCAINE-PF 2% 10 ML AMP SUBQ ONE (09:56)
[2023-04-25] MEDS ORDERED: BUPIVACAINE 0.5% PF 10 ML VIAL ONE ×2 (10:14→10:15)
[2023-04-25] MEDS ORDERED: LIDOCAINE 1%-EPI 1:100000 20 ML MDV ONE (10:14)
[2023-04-25] MEDS ORDERED: SCOPOLAMINE PATCH TOP ONE (10:16)
[2023-04-25] MEDS ORDERED: HYDROmorphone 0.5 MG/0.5 ML SYRINGE IVP PRN (10:19)
[2023-04-25] MEDS ORDERED: METOCLOPRAMIDE 10 MG/2 ML VIAL IVP PRN (10:19)
[2023-04-25] MEDS ORDERED: ePHEDrine 50 MG/ML VIAL IVP PRN (10:19)
[2023-04-25] MEDS ORDERED: ONDANSETRON 4 MG/2 ML VIAL IVP PRN (10:19)
[2023-04-25] MEDS ORDERED: ATROPINE ABBOJECT 1 MG/10 ML SYRINGE IVP PRN (10:19)
[2023-04-25] MEDS ORDERED: fentaNYL 100 MCG/2 ML VIAL IVP PRN (10:19)
[2023-04-25] MEDS ORDERED: NALOXONE 0.4 MG/ML VIAL IVP PRN (10:19)
--- NOTE | 2023-04-25 10:22 | ANESTHESIA ---
Pre-Anesthesia VS, & Labs - Diagnosis right ovarian cyst - Procedure right ovarian cystectomy Vital Signs: Temp Pulse Resp BP Pulse Ox O2 Flow Rate 36.4 C L 90 14 125/81 H 99 04/25/23 09:14 04/25/23 09:14 04/25/23 09:14 04/25/23 09:14 04/25/23 09:14 Height: 5 ft 3 in Weight (kg): 56.1 kg Body Mass Index: 21.9 BMI Classification: Normal - Is Patient ?: No - Lab Results Lab results reviewed: Yes Home Medications and Allergies Active Medications Scopolamine HBr (Scopolamine Patch) 1 patch TOP Q3D HALLIE Allergies/Adverse Reactions: Allergies Allergy/AdvReac Type Severity Reaction Status Date / Time shellfish derived Allergy Anaphylaxis Verified 04/19/23 12:17 morphine AdvReac Nausea Verified 04/25/23 10:14 Anes History & Medical History - Anesthetic History Anesthesia Complications: reports: Post-Operative Nausea/Vomiting (suspected reaction to morphine, hx motion sickness, will give prophylaxis) Family history of Anesthesia Complications: Denies Family history of Malignant Hyperthermia: Denies - Medical History Cardiovascular: reports: High cholesterol, Murmur (active, no cp or sob) Pulmonary: reports: None Gastrointestinal: reports: None, Diverticulitis, Other Urinary: reports: Chronic bladder infection Neuro: reports: None Musculoskeletal: reports: Other Endocrine/Autoimmune: reports: None Blood Disorders: reports: Anemia Skin: reports: Eczema Smoking Status: Never smoker - Surgical History General: reports: Appendectomy Exam General: Alert, Oriented x3, Cooperative, No acute distress Dental: WNL Mouth Openin Fingerbreadth Neck Mobility: Normal Mallampati classification: II Thyromental Distance: 4-6 cm Cardiovascular: Regular rate Mental/Cognitive Status: Alert/Oriented X3 Cognitive Status: Within normal limits Plan Anesthesia Type: General Consent for Procedure(s) Verified and Reviewed: Yes Code Status: Attempt Resuscitation ASA classification: 2-Mild systemic disease Is this case an emergency?: No
[2023-04-25] MEDS ORDERED: diphenhydrAMINE INJ 50 MG/ML VIAL ONE (10:40)
[2023-04-25] MEDS ORDERED: SCOPOLAMINE PATCH TOP SCH (11:00)
[2023-04-25] MEDS ORDERED: LACTATED RINGERS 1,000 ML IV SCH (11:00)
[2023-04-25] MEDS ORDERED: LIDOCAINE 1%-EPI 1:100000 20 ML MDV SUBQ ONE ×2 (11:27)
[2023-04-25] MEDS ORDERED: METHYLENE BLUE 0.5% 50 MG/10 ML AMPULE ONE (11:35)
[2023-04-25] MEDS ORDERED: METHYLENE BLUE 0.5% 50 MG/10 ML AMPULE IR ONE (11:56)
[2023-04-25] MEDS ORDERED: SUGAMMADEX 200 MG/2 ML VIAL IVP ONE (12:03)
[2023-04-25] MEDS ORDERED: SILVER NITRATE APPLICATOR TOP ONE ×2 (12:05→12:06)
--- NOTE | 2023-04-25 12:46 | OPERATIVE REPORT ---
Operative Report - General Procedure Date: 04/25/23 Planned Procedure: bilateral ovarian cystectomy - laparoscopic Pre-Op Diagnosis: bilateral ovarian cysts Procedure Performed: diagnostic laparoscopy, lysis of adhesions, chromopertubation Post Op Diagnosis: pelvic adhesions, dilated fallopian tubes - Procedure Note Primary Surgeon: anya Secondary Surgeon: winston Anesthesia Provider: vladimir FIGUEREDO Anesthesia Technique: General ET tube Pathology: none sent Estimated Blood Loss (mL): 0 Urine Output (mL): 125 Indications: pelvic pain and U/S findings c/w R ovarian cyst. Findings: small, mobile uterus normal cervix normal appearing uterus bilateral dilated fallopian tubes, with adhesions fibriae not visible normal ovaries x2 after lysis of adhesions: fimbrae seen on the patients R side and chromopertubation done with spillage seen on both sides. Complications: none apparent. - Other Other Information/Narrative: OPERATIVE NOTE Pre-operative diagnosis: 1. bilateral ovarian cysts Procedure: diagnostic laparoscopy, lysis of adhesions, chromopertubation Post-operative diagnosis: pelvic adhesions, taken down, dilated tubes, patent tubes, normal ovaries. Surgeon: Anya Sandwich Counter Attendant: Winston Anesthesia: General Findings: small, mobile uterus normal cervix normal appearing uterus bilateral dilated fallopian tubes, with adhesions fibriae not visible normal ovaries x2 after lysis of adhesions: fimbrae seen on the patients R side and chromopertubation done with spillage seen on both sides. normal appearing uterus Complications: None apparent EBL: minimal UOP: 125cc clear yellow urine Specimen: none Disposition: Stable, to PACU Procedure in detail: After risks benefits and alternatives, as well as indication for procedure and anticipated post-operative recovery course was discussed with the patient informed consent was obtained and patient was taken to the operating theater where general anesthesia was administered without difficulty. Pt was prepared and draped in normal sterile fashion. Sponge stick placed in vagina for uterine manipulation Prior to skin incision surgical time out was performed, all persons in the operating theater participated in time out and agreed. Infraumbilical skin incision made with scalpel. Carried down to level of fascia bluntly. Direct visualization was utilized to insert 5mm port. Peritoneum insufflated. Pelvis inspected, notable adhesions from bowel to R adnexae. Both fallopian tubes dilated, no fimbrae seen. 5mm port placed suprapubically. [place] grasper utilized to reveal aforementioned findings. Using gentle pressure adhesions of bowel pulled away from R fallopian tube, until clear filmy adhesions could be seen - and cold scizzors used to cut those adhesions, freeing the fallopian tube. Pelvis inspected in detail, affirmed normal appearing ovaries. Turned our attention then to chromopertubation. [place] manipulator placed in the cervix, after prepping the vagina. pushed a total of 30cc of diluted methelyne blue through the uterus, after gentle blunt lysis of adhesions at the presumed fimbriated end of both tubes, spillage seen. Ultimately the R fimbrae were also seen. All hemostatic. All instrumets removed from the vagina, silver nitrate applied at tenaculum site for hemo stasis. insufflation removed, and skin incisions closed with 4.0 monocryl, bandaids for dressing. several pictures taken. Pt tolerated procedure well. All counts correct. Pt to PACU in stable condition.
[2023-04-25 12:48] VITALS: O2SAT 100
[2023-04-25] MEDS ORDERED: KETOROLAC 30 MG/ML VIAL ONE (13:50)
[2023-04-25] MEDS ORDERED: KETOROLAC 30 MG/ML VIAL IVP SCH (14:00)
[2023-04-25 14:18] VITALS: BP 108/70
--- NOTE | 2023-04-25 18:48 | ANESTHESIA POST OP EVALUATION ---
Anesthesia Post Eval - Post Anesthesia Eval Vitals: Last Vital Signs Temp 36.2 C L 04/25/23 14:00 Pulse 72 04/25/23 14:00 Resp 16 04/25/23 14:00 BP 108/70 04/25/23 14:00 Pulse Ox 100 04/25/23 14:00 O2 Flow Rate CV Function Including HR & BP: Stable Pain Control: Satisfactory Nausea & Vomiting: Negative Mental Status: Baseline Respiratory Status: Airway Patent Hydration Status: Satisfactory Anesthesia Complications: None
== END 2023-04-25 08:45 | disposition home or self-care (01) ==
LOC: SDS 08:44
PROVIDERS: ATTEND Obstetrics & Gynecology
DX: N73.6 Female pelvic peritoneal adhesions (postinfective) (principal); N83.8 Other noninflammatory disorders of ovary, fallopian tube and broad ligament; E78.00 Pure hypercholesterolemia, unspecified
CPT/HCPCS: 44180; 58350; 81025; J1200; J3490; J7120

== ENCOUNTER 2023-07-22 15:50 | Emergency (ER) | payer BC, OTHER ==
[2023-07-22 16:12] VITALS: BP 113/71; O2SAT 100
--- NOTE | 2023-07-22 17:58 | ED Physician Documentation ---
PD HPI SKIN - Stated complaint Stated Complaint: HIVES - Chief complaint Chief Complaint: Wound - Additional information Additional information: 22-year-old female presents emergency department for urticaria. Patient reports she has never had any allergic reactions before she has not had any new medications no change in any detergents or body wash or other personal products and denies anything new in her life. Says that she has not spent a lot of time outdoors lately in the [place] or any new environments. She said that she been noticing a rash these last couple days it comes and goes is very itchy and burning. She said that she is taken Benadryl which has helped a little bit but she is unable to notice any patterns of what makes it come or go. She has no difficulty breathing airway is patent she is able to speak in full sentences. At this point in time the rashes not present but patient has pictures and just wanted to know what medications were best to take and what her next step should be. 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: Ovarian cysts : Chronic bladder infection HEENT: Chronic vision loss Psych: None Musculoskeletal: Other Derm: Eczema - Past Surgical History Past Surgical History: Yes General: Appendectomy - Present Medications Home Medications: Ambulatory Orders Medication Instructions Recorded Confirmed No Known Home Medications 07/22/23 07/22/23 - Allergies Allergies/Adverse Reactions: Allergies Allergy/AdvReac Type Severity Reaction Status Date / Time shellfish derived Allergy Anaphylaxis Verified 07/22/23 16:01 morphine AdvReac Nausea Verified 07/22/23 16:01 - Social History Does the pt smoke?: No Smoking Status: Never smoker Does the pt drink ETOH?: Yes Does the pt have substance abuse?: Yes - Immunizations Immunizations are current?: Yes - POLST Patient has POLST: No PD ED PE NORMAL - Vitals Vital signs reviewed: Yes - General General: Alert and oriented X 3, No acute distress, Well developed/nourished - HEENT HEENT: Atraumatic, PERRL, EOMI, Moist mucous membranes - Respiratory Respiratory: No respiratory distress, Clear bilaterally - Derm Derm: Normal color, Warm and dry, No rash Results - Vitals Vitals: Vital Signs - 24 hr 07/22/23 15:58 Temperature 36.7 C Heart Rate 78 Respiratory 16 Rate Blood Pressure 113/71 O2 Saturation 100 Oxygen O2 Source Room air PD Medical Decision Making - ED course ED course: 22-year-old female presents emergency department for concerns of a rash. The rash has fully resolved she has pictures it does appear to be on her inner legs and arms in the pictures that she shows me. The rash is now fully resolved. Patient says that she still has an itching sensation and so she was given some Zyrtec here in the emergency department and was told to follow-up with nurse practitioner specializes in dermatology here on the [place]. She was told signs symptoms of anaphylaxis to watch out for and she shows absolutely no signs or symptoms of anaphylaxis at this point in time. She is given strict return precautions and told to buy a low-dose hydrocortisone topical cream to apply over the rash if it were to come back to help with the itching sensation and told to take a Zyrtec daily for the next week or so to see if this improves her symptoms. All questions answered return precautions given. Departure - Departure Disposition: 01 Home, Self Care Clinical Impression: Hives Condition: Good Instructions: Urticaria, ED Dermatitis Contact Comments: Thank you for trusting us with your care. As we discussed I would follow-up with your primary care provider for possible dermatology referral for possible allergy testing.There is a dermatology group on [place] and there is a nurse practitioner who may be able to help her name is Rachael Ballesteros, their phone number is [phone]. I would take 1 Zyrtec pill daily you have already taken the first dose here in the emergency department you can start this tomorrow morning. You can also apply a topical ointment called hydrocortisone to help with any sort of rash appearance that develops again. Please come back to the emergency department for having any shortness of breath, nausea vomiting, or any other concerning symptoms. Forms: PCP List Discharge Date/Time: 07/22/23 18:07
[2023-07-22] MEDS: CETIRIZINE 10 MG TABLET PO STA (18:04)
== END 2023-07-22 18:07 | disposition home or self-care (01) ==
LOC: ED 15:50
DX: L50.9 Urticaria, unspecified (principal); E78.00 Pure hypercholesterolemia, unspecified
CPT/HCPCS: 99282; 99283; A9270

== ENCOUNTER 2023-08-01 18:50 | Outpatient (CLI) | payer BC, OTHER | END 2023-08-01 18:51 | disposition critical access hospital (66) | LOC: EMS 18:50 | DX: R45.851 Suicidal ideations (principal) | CPT/HCPCS: A0425; A0429 ==

== ENCOUNTER 2023-08-01 19:08 | Emergency (ER) | payer BC, OTHER ==
--- NOTE | 2023-08-01 19:17 | ED Physician Documentation ---
History of Present Illness - Stated complaint Stated Complaint: SI - History obtained from History obtained from: Patient - Additonal information Additional information: 22-year-old woman with long standing depression, currently untreated either medically nor with counseling. She has been suicidal and developed a plan last night to shoot herself. She did have access to a gun but her friend removed it from the home last night. She is depressed because her is deployed and she is away from her family in [place]. She is agreeable to psychiatric hospitalization for stabilization. Denies drug or alcohol use. 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: Ovarian cysts : Chronic bladder infection HEENT: Chronic vision loss Psych: None Musculoskeletal: Other Derm: Eczema - Past Surgical History Past Surgical History: Yes General: Appendectomy - Present Medications Home Medications: Ambulatory Orders Medication Instructions Recorded Confirmed No Known Home Medications 07/22/23 08/01/23 - Allergies Allergies/Adverse Reactions: Allergies Allergy/AdvReac Type Severity Reaction Status Date / Time shellfish derived Allergy Anaphylaxis Verified 08/01/23 19:21 morphine AdvReac Nausea Verified 08/01/23 19:21 - Social History Does the pt smoke?: No Smoking Status: Never smoker Does the pt drink ETOH?: Yes Does the pt have substance abuse?: Yes - Immunizations Immunizations are current?: Yes - POLST Patient has POLST: No PD ED PE NORMAL - Vitals Vital signs reviewed: Yes - General General: Alert and oriented X 3, Other (Slightly blunted affect and depressed) - HEENT HEENT: PERRL - Cardiac Cardiac: RRR, No murmur - Respiratory Respiratory: No respiratory distress, Clear bilaterally - Abdomen Abdomen: Normal bowel sounds, Soft, Non tender - Derm Derm: Normal color, Warm and dry - Neuro Neuro: Normal speech Results - Vitals Vitals: Vital Signs - 24 hr 08/01/23 19:16 Temperature 36.0 C L Heart Rate 68 Respiratory 17 Rate Blood Pressure 131/85 H O2 Saturation 100 Oxygen O2 Source Room air - Labs Labs: Laboratory Tests 08/01/23 08/01/23 08/01/23 19:00 19:20 19:20 WBC 5.8 RBC 4.89 Hgb 12.1 Hct 38.1 MCV 77.9 L MCH 24.7 L MCHC 31.8 L RDW 15.9 H Plt Count 229 MPV 9.2 Neut # (Auto) 2.2 Lymph # (Auto) 2.8 Craven # (Auto) 0.6 Eos # (Auto) 0.1 Baso # (Auto) 0.0 Absolute Nucleated RBC 0.00 Nucleated RBC % 0.0 Sodium 137 Potassium 3.7 Chloride 107 Carbon Dioxide 24 Anion Gap 6.0 BUN 17 Creatinine 0.6 Estimated GFR (MDRD) 126 Glucose 97 Calcium 9.5 Magnesium 1.9 Total Bilirubin 0.5 AST 15 ALT 9 L Alkaline Phosphatase 67 Total Creatine Kinase 99 Total Protein 7.2 Albumin 4.6 Globulin 2.6 Albumin/Globulin Ratio 1.8 Lipase 28 TSH 2.61 Urine Color YELLOW Urine Clarity CLEAR Urine pH 6.0 Ur Specific Latimer 1.010 Urine Protein NEGATIVE Urine Glucose (UA) NEGATIVE Urine Ketones NEGATIVE Urine Occult Blood NEGATIVE Urine Nitrite NEGATIVE Urine Bilirubin NEGATIVE Urine Urobilinogen 0.2 (NORMAL) Ur Leukocyte Esterase NEGATIVE Ur Microscopic Review NOT INDICATED Urine Culture Comments NOT INDICATED Urine HCG, Qual NEGATIVE Salicylates < 1.5 Urine Opiates Screen NEGATIVE Ur Buprenorphine Scrn NEGATIVE Ur Oxycodone Screen NEGATIVE Urine Methadone Screen NEGATIVE Acetaminophen 0.1 Ur Barbiturates Screen NEGATIVE Ur Tricyclics Screen NEGATIVE Ur Phencyclidine Scrn NEGATIVE Ur Amphetamine Screen NEGATIVE U Methamphetamines Scrn NEGATIVE U Benzodiazepines Scrn NEGATIVE Urine Cocaine Screen NEGATIVE U Cannabinoids Screen NEGATIVE Ur Drug Screen Comment CUTOFF CONC BELOW: Ethyl Alcohol < 10.0 SARS-CoV-2 (PCR) 08/01/23 19:30 WBC RBC Hgb Hct MCV MCH MCHC RDW Plt Count MPV Neut # (Auto) Lymph # (Auto) Craven # (Auto) Eos # (Auto) Baso # (Auto) Absolute Nucleated RBC Nucleated RBC % Sodium Potassium Chloride Carbon Dioxide Anion Gap BUN Creatinine Estimated GFR (MDRD) Glucose Calcium Magnesium Total Bilirubin AST ALT Alkaline Phosphatase Total Creatine Kinase Total Protein Albumin Globulin Albumin/Globulin Ratio Lipase TSH Urine Color Urine Clarity Urine pH Ur Specific Latimer Urine Protein Urine Glucose (UA) Urine Ketones Urine Occult Blood Urine Nitrite Urine Bilirubin Urine Urobilinogen Ur Leukocyte Esterase Ur Microscopic Review Urine Culture Comments Urine HCG, Qual Salicylates Urine Opiates Screen Ur Buprenorphine Scrn Ur Oxycodone Screen Urine Methadone Screen Acetaminophen Ur Barbiturates Screen Ur Tricyclics Screen Ur Phencyclidine Scrn Ur Amphetamine Screen U Methamphetamines Scrn U Benzodiazepines Scrn Urine Cocaine Screen U Cannabinoids Screen Ur Drug Screen Comment Ethyl Alcohol SARS-CoV-2 (PCR) NOT DETECTED PD Medical Decision Making - ED course Complexity details: reviewed results (Lab workup demonstrated a normal CBC, chemistry panel, urinalysis, negative test, negative urine and serum drug testing, negative COVID testing.) ED course: Seen by psychiatric telehealth who recommends inpatient treatment. They did not make recommendations as far as medications in the interim. Patient is medically stable for psychiatric evaluation and/or transfer. Departure - Departure Clinical Impression: Suicidal ideation Condition: Stable
[2023-08-01 19:31] LABS: BASOPHILS % (AUTO) 0.5 %; EOSINOPHILS # (AUTO) 0.1 10^3/uL (0.0-0.7); EOSINOPHILS % (AUTO) 1.9 %; HCT - HEMATOCRIT 38.1 % (37.0-47.0); HGB - HEMOGLOBIN 12.1 g/dL (12.0-16.0); LYMPHOCYTES # (AUTO) 2.8 10^3/uL (1.5-3.5); LYMPHOCYTES % (AUTO) 47.8 %; MEAN CORPUSCULAR HEMOGLOBIN 24.7 pg (27.0-31.0); MEAN CORPUSCULAR HGB CONC 31.8 g/dL (32.0-36.0); MEAN CORPUSCULAR VOLUME 77.9 fL (81.0-99.0); MEAN PLATELET VOLUME 9.2 fL (7.9-10.8); MONOCYTES # (AUTO) 0.6 10^3/uL (0.0-1.0); MONOCYTES % (AUTO) 11.1 %; NEUTROPHILS # (AUTO) 2.2 10^3/uL (1.5-6.6); NEUTROPHILS % (AUTO) 38.7 %; PLT - PLATELET COUNT 229 10^3/uL (130-450); RED BLOOD COUNT 4.89 10^6/uL (4.20-5.40); RED CELL DISTRIBUTION WIDTH 15.9 % (12.0-15.0); WHITE BLOOD COUNT 5.8 x10^3/uL (4.8-10.8)
[2023-08-01 19:39] LABS: BILIRUBIN,URINE NEGATIVE (NEGATIVE); GLUCOSE, URINE (UA) NEGATIVE (NEGATIVE); KETONES,URINE (UA) NEGATIVE (NEGATIVE); LEUKOCYTE ESTERASE, URINE NEGATIVE (NEGATIVE); NITRITE,URINE NEGATIVE (NEGATIVE); OCCULT BLOOD,URINE NEGATIVE (NEGATIVE); PROTEIN,URINE NEGATIVE (NEGATIVE); UROBILINOGEN,URINE 0.2 (NORMAL) E.U./dL (NORMAL)
[2023-08-01 19:40] LABS: CLARITY,URINE CLEAR (CLEAR); HCG UR QUAL NEGATIVE
[2023-08-01 19:46] LABS: ACETAMINOPHEN 0.1 ug/mL; ALBUMIN 4.6 g/dL (3.2-5.5); ALBUMIN/GLOBULIN RATIO 1.8 (1.0-2.2); ALKALINE PHOSPHATASE 67 IU/L (42-121); ALT ALANINE AMINOTRANSFERASE 9 IU/L (10-60); AST ASPARTATE AMINOTRANSFERASE 15 IU/L (10-42); BILIRUBIN,TOTAL 0.5 mg/dL (0.2-1.0); BUN - BLOOD UREA NITROGEN 17 mg/dL (6-20); CALCIUM 9.5 mg/dL (8.5-10.3); CARBON DIOXIDE - CO2 24 mmol/L (21-32); CHLORIDE 107 mmol/L (101-111); CK- CREATINE KINASE 99 IU/L (30-223); CREATININE 0.6 mg/dL (0.6-1.3); ETOH - ETHANOL < 10.0 mg/dL; GFR - MDRD 126 (>89); GLUCOSE 97 mg/dL (74-104); LIPASE 28 U/L (11-82); MAGNESIUM 1.9 mg/dL (1.7-2.3); POTASSIUM 3.7 mmol/L (3.5-4.5); SODIUM 137 mmol/L (135-145); TOTAL PROTEIN 7.2 g/dL (6.4-8.9)
[2023-08-01 19:50] LABS: AMPHETAMINE SCREEN,URINE NEGATIVE (NEGATIVE); BARBITURATE SCREEN,UR NEGATIVE (NEGATIVE); BENZODIAZEPINES SCREEN, URINE NEGATIVE (NEGATIVE); BUPRENORPHINE SCREEN, URINE NEGATIVE (NEGATIVE); COCAINE SCREEN URINE NEGATIVE (NEGATIVE); METHADONE SCREEN, URINE NEGATIVE (NEGATIVE); METHAMPHETAMINES SCREEN, URINE NEGATIVE (NEGATIVE); OPIATE SCREEN, URINE NEGATIVE (NEGATIVE); OXYCODONE SCREEN, URINE NEGATIVE (NEGATIVE); THC CANNABINOID SCREEN, URINE NEGATIVE (NEGATIVE); TRICYCLIC ANTIDEPRESSANT,URINE NEGATIVE (NEGATIVE)
[2023-08-01 20:00] LABS: THYROID STIMULATING HORMONE 2.61 uIU/mL (0.34-5.60)
[2023-08-01 20:12] LABS: SALICYLATE < 1.5 mg/dL
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
--- NOTE | 2023-08-02 01:21 | ED Physician Documentation ---
ED Addendum - Addendum Addendum: 08/02/23 01:21 Patient endorsed to me by Dr. Landry awaiting placement. Disposition transfer to inpatient psychiatric care Condition stable Impression 1 depression 2 suicidal ideation
[2023-08-02] MEDS: IBUPROFEN 600 MG TABLET PO STA (02:50)
--- NOTE | 2023-08-02 09:22 | ED Physician Documentation ---
ED Addendum - Addendum Addendum: 08/02/23 Patient care assumed at shift change. Patient is boarding awaiting transfer to inpatient psychiatric facility. She is voluntary. Per report if she is wanting to leave she is not safe to do so and should be detained. Transport arrived and patient Transported to their stretcher without issue.She has remained calm and cooperative this morning. Departure - Departure Disposition: [facility] Psych Hosp/Unit DC/Xfer Clinical Impression: Suicidal ideation Condition: Stable Forms: PCP List Discharge Date/Time: 08/02/23 11:32
[2023-08-02 11:35] VITALS: BP 116/71; O2SAT 99
== END 2023-08-02 11:32 ==
LOC: EDUNIT# → ED 19:08
DX: R45.851 Suicidal ideations (principal); F32.A Depression, unspecified; R44.0 Auditory hallucinations; F41.9 Anxiety disorder, unspecified; E78.00 Pure hypercholesterolemia, unspecified; Z91.51 Personal history of suicidal behavior
CPT/HCPCS: 36415; 80053; 80143; 80179; 80306; 81003; 81025; 82077; 82550; 83690; 83735; 84443; 85025; 87635; 99285; A9270; G0425; Q3014; 81001; 87086

== ENCOUNTER 2023-08-26 22:30 | Emergency (ER) | payer BC, OTHER ==
[2023-08-26 22:43] VITALS: O2SAT 100
[2023-08-26 22:58] LABS: BASOPHILS # (AUTO) 0.1 10^3/uL (0.0-0.1); BASOPHILS % (AUTO) 0.9 %; EOSINOPHILS # (AUTO) 0.1 10^3/uL (0.0-0.7); HCT - HEMATOCRIT 38.6 % (37.0-47.0); HGB - HEMOGLOBIN 12.5 g/dL (12.0-16.0); LYMPHOCYTES # (AUTO) 2.5 10^3/uL (1.5-3.5); LYMPHOCYTES % (AUTO) 36.5 %; MEAN CORPUSCULAR HEMOGLOBIN 25.3 pg (27.0-31.0); MEAN CORPUSCULAR HGB CONC 32.4 g/dL (32.0-36.0); MEAN CORPUSCULAR VOLUME 78.1 fL (81.0-99.0); MEAN PLATELET VOLUME 8.7 fL (7.9-10.8); MONOCYTES # (AUTO) 0.7 10^3/uL (0.0-1.0); MONOCYTES % (AUTO) 10.5 %; NEUTROPHILS # (AUTO) 3.6 10^3/uL (1.5-6.6); PLT - PLATELET COUNT 233 10^3/uL (130-450); RED BLOOD COUNT 4.94 10^6/uL (4.20-5.40); RED CELL DISTRIBUTION WIDTH 15.5 % (12.0-15.0)
[2023-08-26 23:01] LABS: BILIRUBIN,URINE NEGATIVE (NEGATIVE); GLUCOSE, URINE (UA) NEGATIVE (NEGATIVE); KETONES,URINE (UA) 15 mg/dL (NEGATIVE); LEUKOCYTE ESTERASE, URINE SMALL (NEGATIVE); NITRITE,URINE NEGATIVE (NEGATIVE); OCCULT BLOOD,URINE TRACE-INTA (NEGATIVE); PROTEIN,URINE NEGATIVE (NEGATIVE); UROBILINOGEN,URINE 0.2 (NORMAL) E.U./dL (NORMAL)
[2023-08-26 23:02] LABS: CLARITY,URINE HAZY (CLEAR)
[2023-08-26 23:05] LABS: HCG UR QUAL NEGATIVE
[2023-08-26 23:16] LABS: RBC,URINE None Seen /HPF (0-5); SQUAMOUS EPITHELIAL CELL,UR MANY Squamous (<= Few)
[2023-08-26 23:17] LABS: ALBUMIN 4.4 g/dL (3.2-5.5); ALBUMIN/GLOBULIN RATIO 1.8 (1.0-2.2); ALKALINE PHOSPHATASE 69 IU/L (42-121); ALT ALANINE AMINOTRANSFERASE 7 IU/L (10-60); AMPHETAMINE SCREEN,URINE NEGATIVE (NEGATIVE); AST ASPARTATE AMINOTRANSFERASE 13 IU/L (10-42); BACTERIA,URINE Few /HPF (None Seen); BARBITURATE SCREEN,UR NEGATIVE (NEGATIVE); BENZODIAZEPINES SCREEN, URINE NEGATIVE (NEGATIVE); BILIRUBIN,TOTAL 0.5 mg/dL (0.2-1.0); BUN - BLOOD UREA NITROGEN 10 mg/dL (6-20); BUPRENORPHINE SCREEN, URINE NEGATIVE (NEGATIVE); CALCIUM 9.6 mg/dL (8.5-10.3); CARBON DIOXIDE - CO2 23 mmol/L (21-32); CHLORIDE 104 mmol/L (101-111); COCAINE SCREEN URINE NEGATIVE (NEGATIVE); CREATININE 0.6 mg/dL (0.6-1.3); EPITHELIAL CELLS,UR RARE Renal Tubular /HPF (<= Few); ETOH - ETHANOL < 10.0 mg/dL; GFR - MDRD 126 (>89); GLUCOSE 96 mg/dL (74-104); LIPASE 29 U/L (11-82); METHADONE SCREEN, URINE NEGATIVE (NEGATIVE); METHAMPHETAMINES SCREEN, URINE NEGATIVE (NEGATIVE); MUCUS,URINE Moderate Strands; OPIATE SCREEN, URINE NEGATIVE (NEGATIVE); OXYCODONE SCREEN, URINE NEGATIVE (NEGATIVE); POTASSIUM 3.4 mmol/L (3.5-4.5); SODIUM 136 mmol/L (135-145); THC CANNABINOID SCREEN, URINE NEGATIVE (NEGATIVE); TOTAL PROTEIN 6.9 g/dL (6.4-8.9); TRICYCLIC ANTIDEPRESSANT,URINE NEGATIVE (NEGATIVE)
[2023-08-26 23:26] LABS: THYROID STIMULATING HORMONE 3.13 uIU/mL (0.34-5.60)
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
[2023-08-27 02:19] LABS: ACETAMINOPHEN < 0.1 ug/mL
[2023-08-27 02:20] LABS: SALICYLATE < 1.5 mg/dL
[2023-08-27 06:48] VITALS: BP 101/57
--- NOTE | 2023-08-27 10:22 | ED Physician Documentation ---
ED Addendum - Addendum Addendum: 08/27/23 Patient signed out to me at shift change. Patient is awaiting voluntary ps ychiatric placement. She has been calm and cooperative. [facility] declined patient as they felt she did not meet inpatient criteria nor offering outpatient program. Patient was accepted to [facility] in [place]. MIL signed. Departure - Departure Disposition: 65 Psych Hosp/Unit DC/Xfer Clinical Impression: Suicidal ideation Depression Qualifiers: Depression Type: unspecified Qualified Code(s): F32.A - Depression, unspecified Condition: Stable Forms: PCP List Discharge Date/Time: 08/27/23 12:35
[2023-08-27] MEDS: SCOPOLAMINE PATCH TOP SCH (12:31)
== END 2023-08-27 12:35 ==
LOC: ED 22:30
DX: F32.A Depression, unspecified (principal); R45.851 Suicidal ideations; Z75.1 Person awaiting admission to adequate facility elsewhere; E78.00 Pure hypercholesterolemia, unspecified; F43.10 Post-traumatic stress disorder, unspecified; Z79.899 Other long term (current) drug therapy
CPT/HCPCS: 36415; 80053; 80143; 80179; 80306; 81001; 81025; 82077; 83690; 84443; 85025; 87635; 90834; 99285; J3490; Q3014; 81003; 87086

== ENCOUNTER 2023-09-09 19:24 | Emergency (ER) | payer BC, OTHER ==
--- NOTE | 2023-09-09 20:22 | ED Physician Documentation ---
History of Present Illness - Stated complaint Stated Complaint: DISORIENTED - Chief complaint Chief Complaint: General - History obtained from History obtained from: Patient - Additonal information Additional information: Patient is a 22-year-old female with recent psychiatric inpatient admission presenting for evaluation of feeling lightheaded and And confused since being discharged from psychiatric facility and started on prazosin. She is on a total of 5 medications and states that 2 of these are new one is being prazosin. She denies a history of hypertension. She states that her symptoms are worse today than other days. She did see her primary care provider on Saturday and did review her symptoms and the plan was to just continue to monitor her. Her is deployed and she spoke to a doctor that is deployed with him and he felt it could be related to the Prazosin she is on.Reports a headache and having some nausea today. No trauma. Reports loose stools. Denies concerns for . No chest pain or difficulty breathing. Review of Systems Cardiac: denies: Chest pain / pressure Respiratory: denies: Dyspnea GI: denies: Abdominal Pain Neurologic: reports: Headache PD PAST MEDICAL HISTORY - Past Medical History Past Medical History: Yes Cardiovascular: High cholesterol, Murmur Respiratory: None Neuro: None Endocrine/Autoimmune: None GI: None, Diverticulitis, Other DIRECTOR QUALITY SYSTEMS: Ovarian cysts : Chronic bladder infection HEENT: Chronic vision loss Psych: Depression, Anxiety, Post traumatic stress disorder Musculoskeletal: Other Derm: Eczema - Past Surgical History Past Surgical History: Yes General: Appendectomy - Present Medications Home Medications: Ambulatory Orders Medication Instructions Recorded Confirmed ARIPiprazole [Abilify] 5 mg PO DAILY 08/26/23 09/09/23 Fluoxetine HCl [Prozac] 20 mg PO DAILY 08/26/23 09/09/23 hydrOXYzine HCL [Hydroxyzine HCl] 50 mg PO DAILY 08/26/23 09/09/23 traZODone [Desyrel] 50 mg PO DAILY 08/26/23 09/09/23 Prazosin [Minipress] 1 mg PO DAILY 09/09/23 09/09/23 - Allergies Allergies/Adverse Reactions: Allergies Allergy/AdvReac Type Severity Reaction Status Date / Time shellfish derived Allergy Anaphylaxis Verified 09/09/23 19:43 morphine AdvReac Nausea Verified 09/09/23 19:43 - Social History Does the pt smoke?: No Smoking Status: Never smoker Does the pt drink ETOH?: Yes Does the pt have substance abuse?: Yes - Immunizations Immunizations are current?: Yes - POLST Patient has POLST: No PD ED PE NORMAL - General General: Alert and oriented X 3, No acute distress, Well developed/nourished - HEENT HEENT: Atraumatic, PERRL, EOMI, Pharynx benign - Neck Neck: Supple, no meningeal sign - Cardiac Cardiac: RRR, Strong equal pulses - Respiratory Respiratory: No respiratory distress, Clear bilaterally - Abdomen Abdomen: Normal bowel sounds, Soft, Non distended, Other (Mild epigastric tenderness) - Derm Derm: Warm and dry - Neuro Neuro: Alert and oriented X 3, 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, No motor deficit, No sensory deficit, Normal speech Eye Opening: Spontaneous Motor: Obeys Commands Verbal: Oriented GCS Score: 15 Results - Vitals Vitals: Vital Signs - 24 hr 09/09/23 09/09/23 09/09/23 19:34 20:38 21:00 Temperature 36.7 C Heart Rate 77 71 Heart Rate [ 82 Sitting] Heart Rate [ 73 Standing] Heart Rate [ 74 Supine] Respiratory 16 16 Rate Blood Pressure 113/69 98/64 Blood Pressure 114/71 [Sitting] Blood Pressure 116/68 [Standing] Blood Pressure 112/72 [Supine] O2 Saturation 100 97 09/09/23 21:30 Temperature Heart Rate 75 Heart Rate [ Sitting] Heart Rate [ Standing] Heart Rate [ Supine] Respiratory 16 Rate Blood Pressure 95/72 Blood Pressure [Sitting] Blood Pressure [Standing] Blood Pressure [Supine] O2 Saturation 97 Oxygen O2 Source Room air - EKG (time done) 2043 EKG releavant findings:: EKG personally interpreted by author of this note. Relevant findings are: Rate 72, normal sinus rhythm, QTc 409, no STEMI - Labs Labs: Laboratory Tests 09/09/23 09/09/23 09/09/23 20:28 20:28 20:30 WBC 5.7 RBC 4.63 Hgb 11.5 L Hct 36.5 L MCV 78.8 L MCH 24.8 L MCHC 31.5 L RDW 15.1 H Plt Count 245 MPV 8.7 Neut # (Auto) 3.0 Lymph # (Auto) 1.9 [place] # (Auto) 0.6 Eos # (Auto) 0.1 Baso # (Auto) 0.0 Absolute Nucleated RBC 0.00 Nucleated RBC % 0.0 Sodium 138 Potassium 3.7 Chloride 104 Carbon Dioxide 26 Anion Gap 8.0 BUN 20 Creatinine 0.6 Estimated GFR (MDRD) 126 Glucose 98 Calcium 9.9 Total Bilirubin 0.4 AST 21 ALT 22 Alkaline Phosphatase 75 Total Protein 7.4 Albumin 4.5 Globulin 2.9 Albumin/Globulin Ratio 1.6 Lipase 31 Urine Color YELLOW Urine Clarity CLEAR Urine pH 6.0 Ur Specific [place] >=1.030 H Urine Protein NEGATIVE Urine Glucose (UA) NEGATIVE Urine Ketones NEGATIVE Urine Occult Blood NEGATIVE Urine Nitrite NEGATIVE Urine Bilirubin NEGATIVE Urine Urobilinogen 0.2 (NORMAL) Ur Leukocyte Esterase NEGATIVE Ur Microscopic Review NOT INDICATED Urine Culture Comments NOT INDICATED Urine HCG, Qual NEGATIVE PD Medical Decision Making - ED course Complexity details: reviewed results, re-evaluated patient, d/w patient ED course: Patient is a 22-year-old female presenting for evaluation of feeling lightheaded since starting a new medication called prazosin. Her vital signs are stable and she has a normal neuroexam. No falls or head injury. EKG is reviewed and a sinus rhythm. CBC, chemistries, urinalysis were obtained and reviewed and without significant findings. She has baseline anemia which is not significantly changed. Orthostatics are negative. She is feeling better here with IV fluids. She was counseled that her symptoms could be related to her new medication and that she should consider risks and benefits of the medication in order to decide whether she should continue on it.At this time her vital signs are stable and she is ambulatory and patient was advised on need for close follow-up with her primary care provider. Friend is at the bedside. Patient advised on concerning symptoms to return for. Departure - Departure Disposition: 01 Home, Self Care Clinical Impression: Lightheadedness, Anemia Condition: Stable Instructions: ED Weakness [facility] Comments: Your testing tonight does not show any significant abnormalities other than mild anemia which is similar to your baseline. Your symptoms may be related to one of your new medications called prazosin. This medication is used to lower blood pressure but also used for PTSD and nightmares. You may want to consider stopping this medication to see if your symptoms resolve.I would recommend close follow-up with your primary care provider. Return to the ER with any new or worsening symptoms. Forms: PCP List Discharge Date/Time: 09/09/23 21:50
[2023-09-09] MEDS: SODIUM CHLORIDE 0.9% 1,000 ML IV STA (20:24)
[2023-09-09] MEDS: ONDANSETRON 4 MG/2 ML VIAL IVP STA (20:24)
[2023-09-09 20:36] LABS: BILIRUBIN,URINE NEGATIVE (NEGATIVE); GLUCOSE, URINE (UA) NEGATIVE (NEGATIVE); KETONES,URINE (UA) NEGATIVE (NEGATIVE); LEUKOCYTE ESTERASE, URINE NEGATIVE (NEGATIVE); NITRITE,URINE NEGATIVE (NEGATIVE); OCCULT BLOOD,URINE NEGATIVE (NEGATIVE); PROTEIN,URINE NEGATIVE (NEGATIVE); UROBILINOGEN,URINE 0.2 (NORMAL) E.U./dL (NORMAL)
[2023-09-09 20:45] LABS: BASOPHILS % (AUTO) 0.5 %; EOSINOPHILS # (AUTO) 0.1 10^3/uL (0.0-0.7); EOSINOPHILS % (AUTO) 1.6 %; HCT - HEMATOCRIT 36.5 % (37.0-47.0); HGB - HEMOGLOBIN 11.5 g/dL (12.0-16.0); LYMPHOCYTES # (AUTO) 1.9 10^3/uL (1.5-3.5); LYMPHOCYTES % (AUTO) 33.8 %; MEAN CORPUSCULAR HEMOGLOBIN 24.8 pg (27.0-31.0); MEAN CORPUSCULAR HGB CONC 31.5 g/dL (32.0-36.0); MEAN CORPUSCULAR VOLUME 78.8 fL (81.0-99.0); MEAN PLATELET VOLUME 8.7 fL (7.9-10.8); MONOCYTES # (AUTO) 0.6 10^3/uL (0.0-1.0); MONOCYTES % (AUTO) 10.4 %; NEUTROPHILS % (AUTO) 53.5 %; PLT - PLATELET COUNT 245 10^3/uL (130-450); RED BLOOD COUNT 4.63 10^6/uL (4.20-5.40); RED CELL DISTRIBUTION WIDTH 15.1 % (12.0-15.0); WHITE BLOOD COUNT 5.7 x10^3/uL (4.8-10.8)
[2023-09-09 20:45] LABS: CLARITY,URINE CLEAR (CLEAR); HCG UR QUAL NEGATIVE
[2023-09-09 21:07] LABS: ALBUMIN 4.5 g/dL (3.2-5.5); ALBUMIN/GLOBULIN RATIO 1.6 (1.0-2.2); BILIRUBIN,TOTAL 0.4 mg/dL (0.2-1.0); CALCIUM 9.9 mg/dL (8.5-10.3); CREATININE 0.6 mg/dL (0.6-1.3); POTASSIUM 3.7 mmol/L (3.5-4.5); TOTAL PROTEIN 7.4 g/dL (6.4-8.9)
[2023-09-09 21:53] VITALS: BP 95/72; O2SAT 97
== END 2023-09-09 21:50 | disposition home or self-care (01) ==
LOC: ED 19:24
DX: R42 Dizziness and giddiness (principal); D64.9 Anemia, unspecified; E78.00 Pure hypercholesterolemia, unspecified; Z79.899 Other long term (current) drug therapy
CPT/HCPCS: 36415; 80053; 81001; 81003; 81025; 83690; 85025; 87086; 93005; 96361; 96374; 99283

== ENCOUNTER 2023-09-15 07:26 | Emergency (ER) | payer BC, OTHER ==
[2023-09-15 07:53] VITALS: O2SAT 100
--- NOTE | 2023-09-15 07:53 | ED Physician Documentation ---
PD HPI URI - Stated complaint Stated Complaint: العلي, SORE THROAT - Chief complaint Chief Complaint: Neuro - History obtained from History obtained from: Patient - History of Present Illness Timing - onset: How many weeks ago (1) Timing duration: Weeks (1) Timing details: Gradual onset, Still present (worse sore throat since last night. Has had migraine headache undulating the past 4-5 days, previously just once every month or two.) Associated symptoms: Chills, Nasal congestion, Rhinorrhea, Sore throat, Other (also several days of migraine type headache.) Similar symptoms before: No diagnosis (occasional migraines for which she takes OTC meds and sleeps the day. No diagnosis nor Rx meds.) Review of Systems Constitutional: reports: Myalgias, Fatigue. denies: Fever Eyes: reports: Photophobia Nose: reports: Rhinorrhea / runny nose, Congestion Throat: reports: Sore throat (increasing) Respiratory: reports: Cough GI: reports: Nausea. denies: Diarrhea Neurologic: reports: Headache. denies: Focal weakness, Numbness, Altered mental status PD PAST MEDICAL HISTORY - Past Medical History Past Medical History: Yes Cardiovascular: High cholesterol, Murmur Respiratory: None Neuro: Migraines Endocrine/Autoimmune: None GI: None, Diverticulitis, Other BRIM BUSTER: Ovarian cysts : Chronic bladder infection HEENT: Chronic vision loss Psych: Depression, Anxiety, Post traumatic stress disorder Musculoskeletal: Other Derm: Eczema - Past Surgical History Past Surgical History: Yes General: Appendectomy - Present Medications Home Medications: Ambulatory Orders Medication Instructions Recorded Confirmed ARIPiprazole [Abilify] 5 mg PO DAILY 08/26/23 09/15/23 Fluoxetine HCl [Prozac] 20 mg PO DAILY 08/26/23 09/15/23 hydrOXYzine HCL [Hydroxyzine HCl] 50 mg PO DAILY 08/26/23 09/15/23 traZODone [Desyrel] 50 mg PO HS 08/26/23 09/15/23 Prazosin [Minipress] 1 mg PO HS 09/09/23 09/15/23 Ondansetron Odt [Zofran] 4 mg TL Q6H PRN #10 tablet 09/15/23 09/15/23 Promethazine [Phenergan] 25 mg PO Q6H PRN #10 tab 09/15/23 09/15/23 Sumatriptan Succinate [Imitrex] 50 mg PO Q6H PRN #9 tablet 09/15/23 09/15/23 dexAMETHasone [Decadron] 4 mg PO DAILY #5 tablet 09/15/23 09/15/23 - Allergies Allergies/Adverse Reactions: Allergies Allergy/AdvReac Type Severity Reaction Status Date / Time shellfish derived Allergy Anaphylaxis Verified 09/15/23 22:18 morphine AdvReac Nausea Verified 09/15/23 22:18 - Social History Does the pt smoke?: No Smoking Status: Never smoker Does the pt drink ETOH?: Yes Does the pt have substance abuse?: No - Immunizations Immunizations are current?: Yes - POLST Patient has POLST: No PD ED PE NORMAL - Vitals Vital signs reviewed: Yes - General General: Alert and oriented X 3, Well developed/nourished, Other (pleasant and intreactive. ) - HEENT HEENT: Ears normal. No: Pharynx benign (mild tonsillar redness and swelling without exudate nor peritonsillar edema. ) - Neck Neck: Supple, no meningeal sign, No adenopathy - Cardiac Cardiac: RRR, No murmur - Respiratory Respiratory: No respiratory distress, Clear bilaterally - Neuro Neuro: Alert and oriented X 3, No motor deficit, No sensory deficit, Normal speech - Psych Psych: Normal mood, Normal affect Results - Vitals Vitals: Oxygen O2 Source Room air - Labs Labs: Laboratory Tests 09/15/23 09/15/23 07:45 08:05 Urine Color YELLOW Urine Clarity CLEAR Urine pH 6.5 Ur Specific [place] 1.025 Urine Protein NEGATIVE Urine Glucose (UA) NEGATIVE Urine Ketones NEGATIVE Urine Occult Blood NEGATIVE Urine Nitrite NEGATIVE Urine Bilirubin NEGATIVE Urine Urobilinogen 0.2 (NORMAL) Ur Leukocyte Esterase NEGATIVE Ur Microscopic Review NOT INDICATED Urine Culture Comments NOT INDICATED Urine HCG, Qual NEGATIVE Group A Strep Rapid Negative PD Medical Decision Making - ED course Complexity details: re-evaluated patient (headache and nasuea improved and gone after meds of fluids, toradol, zofran and then decadron (for apparent status migraine). Feeling much better. ), considered differential (sounds like URI symptoms with congestion and some cough, now with worse sore throat. CLinically low suspicion for strep (1/4 centor) and will get rapid test. Otherwise having classic migraine symptoms (العلي, nausea, peripheral visual changes, light sensitive). Will treat here for that and Rx PRN meds.), d/w patient Departure - Departure Disposition: 01 Home, Self Care Clinical Impression: URI (upper respiratory infection), Pharyngitis with viral syndrome, Migraine headache Condition: Stable Record reviewed to determine appropriate education?: Yes Instructions: ED Headache Migraine, ED Pharyngitis Viral Report Pending Follow-Up: JOSE MATTHEWS ARNP [Primary Care Provider] - Prescriptions: dexAMETHasone [Decadron] 4 mg PO DAILY #5 tablet Sumatriptan Succinate [Imitrex] 50 mg PO Q6H PRN #9 tablet PRN Reason: Migraine Promethazine [Phenergan] 25 mg PO Q6H PRN #10 tab PRN Reason: Nausea / Vomiting Ondansetron Odt [Zofran] 4 mg TL Q6H PRN #10 tablet PRN Reason: Nausea / Vomiting Comments: Your rapid strep test is negative. The throat culture will result in a couple of days and if it is positive, we will call you to add on antibiotics. At this point clinically it appears less likely to be bacterial so I would hold off on that for now. Most likely of viral type process causing the sore throat. For that we would have use a combination of some anti-inflammatory as well as Tylenol and add in ondansetron if needed for nausea. Since you are having the persistent migraine headache, a common treatment for th at to decrease him over the next few days is a steroid anti-inflammatory. Therefore use Decadron steroid daily for the next 5 days to help both with the throat and the migraine. Subsequently if you have repeat migraines, you can use a combination of ondansetron or promethazine for nausea combined with ibuprofen and the Imitrex/sumatriptan which is an antimigraine medicine. The combination will often work with 1/2-hour to an hour to stop the headache completely. If you have success with the sumatriptan with ondansetron combination, then your primary care can prescribe more. Given the frequency and intensity of the migraines, there can also be a daily medicine added to prevent the episodes (more exactly reduce the frequency). However you want to see the pattern of it because if they are infrequent and easily disrupted then daily medicine may not be required. I sent your prescriptions to preferred pharmacy. Forms: PCP List Discharge Date/Time: 09/15/23 09:57
[2023-09-15 08:09] LABS: RAPID STREP SCREEN Negative (Negative)
[2023-09-15] MEDS: KETOROLAC 15 MG/ML VIAL IVP STA (08:41)
[2023-09-15] MEDS: DEXAMETHASONE 10 MG/ML VIAL IVP STA (08:41)
[2023-09-15] MEDS: ONDANSETRON 4 MG/2 ML VIAL IVP STA (08:41)
[2023-09-15] MEDS: SODIUM CHLORIDE 0.9% 1,000 ML IV STA (08:41)
[2023-09-15 09:00] LABS: BILIRUBIN,URINE NEGATIVE (NEGATIVE); GLUCOSE, URINE (UA) NEGATIVE (NEGATIVE); KETONES,URINE (UA) NEGATIVE (NEGATIVE); LEUKOCYTE ESTERASE, URINE NEGATIVE (NEGATIVE); NITRITE,URINE NEGATIVE (NEGATIVE); OCCULT BLOOD,URINE NEGATIVE (NEGATIVE); PH,URINE 6.5 PH (5.0-7.5); PROTEIN,URINE NEGATIVE (NEGATIVE); UROBILINOGEN,URINE 0.2 (NORMAL) E.U./dL (NORMAL)
[2023-09-15 09:02] LABS: CLARITY,URINE CLEAR (CLEAR); HCG UR QUAL NEGATIVE
[2023-09-15 09:31] VITALS: BP 109/67
== END 2023-09-15 09:57 | disposition home or self-care (01) ==
LOC: ED 07:26
DX: J06.9 Acute upper respiratory infection, unspecified (principal); J02.8 Acute pharyngitis due to other specified organisms; B97.89 Other viral agents as the cause of diseases classified elsewhere; G43.009 Migraine without aura, not intractable, without status migrainosus; E78.00 Pure hypercholesterolemia, unspecified; Z79.899 Other long term (current) drug therapy
CPT/HCPCS: 81001; 81003; 81025; 87070; 87086; 87430; 96374; 96375; 99283

== ENCOUNTER 2023-09-15 21:26 | Outpatient (CLI) | payer BC, OTHER | END 2023-09-15 23:59 | disposition EMS.NT | LOC: EMS 21:26 | DX: R45.89 Other symptoms and signs involving emotional state (principal) ==

== ENCOUNTER 2023-09-15 22:13 | Emergency (ER) | payer BC, OTHER ==
[2023-09-15 22:35] VITALS: O2SAT 100
--- NOTE | 2023-09-15 23:04 | ED Physician Documentation ---
History of Present Illness - Stated complaint Stated Complaint: SI - Chief complaint Chief Complaint: MHE - Additonal information Additional information: Patient 22-year-old female presenting to the emergency department brought in by ambulance for suicidal ideation. Reports thoughts of wanting to kill herself, specifically reporting to EMS that she would like to shoot herself or slit her wrists or possibly overdose on her medications. States has been having these thoughts for several months. Reports that she has been having recurrent episodes of migraine headache for the last week and a half. Denies taking any medications or engaging in activities of self-harm at home. Denies auditory visual hallucinations. Denies head trauma, fever, chills, neck stiffness, shortness of breath, chest pain, abdominal pain, nausea, vomiting, diarrhea, constipation. When asked about whether or not she feels she needs hospitalization she states "I do not want to but I think it would be of benefit to me". 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: Ovarian cysts : Chronic bladder infection HEENT: Chronic vision loss Psych: Depression, Anxiety, Post traumatic stress disorder Musculoskeletal: Other Derm: Eczema - Past Surgical History Past Surgical History: Yes General: Appendectomy - Present Medications Home Medications: Ambulatory Orders Medication Instructions Recorded Confirmed ARIPiprazole [Abilify] 5 mg PO DAILY 08/26/23 09/15/23 Fluoxetine HCl [Prozac] 20 mg PO DAILY 08/26/23 09/15/23 hydrOXYzine HCL [Hydroxyzine HCl] 50 mg PO DAILY 08/26/23 09/15/23 traZODone [Desyrel] 50 mg PO HS 08/26/23 09/15/23 Prazosin [Minipress] 1 mg PO HS 09/09/23 09/15/23 Ondansetron Odt [Zofran] 4 mg TL Q6H PRN #10 tablet 09/15/23 09/15/23 Promethazine [Phenergan] 25 mg PO Q6H PRN #10 tab 09/15/23 09/15/23 Sumatriptan Succinate [Imitrex] 50 mg PO Q6H PRN #9 tablet 09/15/23 09/15/23 dexAMETHasone [Decadron] 4 mg PO DAILY #5 tablet 09/15/23 09/15/23 - Allergies Allergies/Adverse Reactions: Allergies Allergy/AdvReac Type Severity Reaction Status Date / Time shellfish derived Allergy Anaphylaxis Verified 09/15/23 22:18 morphine AdvReac Nausea Verified 09/15/23 22:18 - Social History Does the pt smoke?: No Smoking Status: Never smoker Does the pt drink ETOH?: Yes Does the pt have substance abuse?: No - Immunizations Immunizations are current?: Yes - POLST Patient has POLST: No PD ED PE NORMAL - Vitals Vital signs reviewed: Yes (wnl) - General General: Alert and oriented X 3, No acute distress, Well developed/nourished - HEENT HEENT: Atraumatic, PERRL, EOMI, Ears normal - Neck Neck: Supple, no meningeal sign, No adenopathy, Thyroid normal, No JVD - Cardiac Cardiac: RRR - Respiratory Respiratory: No respiratory distress - Abdomen Abdomen: Normal bowel sounds, Non tender - Female Female : Deferred - Rectal Rectal: Deferred - Derm Derm: Normal color - Neuro Neuro: Alert and oriented X 3, 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 No: Anxious, Agitated, Combative, Manic, Pressured speech, Auditory hallucinations, Visual hallucinations, Tactile hallucinations, Delusions Results - Vitals Vitals: Vital Signs - 24 hr 09/15/23 22:18 Temperature 36.9 C Heart Rate 86 Respiratory 16 Rate Blood Pressure 120/72 O2 Saturation 100 Oxygen O2 Source Room air - EKG (time done) 2240 EKG releavant findings:: EKG personally interpreted by author of this note. Relevant findings are: Sinus rhythm with rate 79 bpm. Normal axis. Normal OR, QRS, QTc intervals. No ST segment elevations or T wave inversions. - Labs Labs: Laboratory Tests 09/15/23 09/15/23 09/15/23 22:43 23:09 23:09 WBC 14.6 H RBC 4.48 Hgb 11.4 L Hct 35.3 L MCV 78.8 L MCH 25.4 L MCHC 32.3 RDW 15.0 Plt Count 267 MPV 8.8 Neut # (Auto) 12.8 H Lymph # (Auto) 0.8 L [place] # (Auto) 0.9 Eos # (Auto) 0.0 Baso # (Auto) 0.0 Absolute Nucleated RBC 0.00 Nucleated RBC % 0.0 Sodium 136 Potassium 3.8 Chloride 107 Carbon Dioxide 23 Anion Gap 6.0 BUN 11 Creatinine 0.5 L Estimated GFR (MDRD) 156 Glucose 126 H Calcium 9.5 Magnesium 1.7 Total Bilirubin 0.4 AST 12 ALT 15 Alkaline Phosphatase 69 Total Creatine Kinase 62 Total Protein 6.8 Albumin 4.2 Globulin 2.6 Albumin/Globulin Ratio 1.6 Lipase 16 Urine HCG, Qual Salicylates < 1.5 Urine Opiates Screen Ur Buprenorphine Scrn Ur Oxycodone Screen Urine Methadone Screen Acetaminophen 0.1 Ur Barbiturates Screen Ur Tricyclics Screen Ur Phencyclidine Scrn Ur Amphetamine Screen U Methamphetamines Scrn U Benzodiazepines Scrn Urine Cocaine Screen U Cannabinoids Screen Ur Drug Screen Comment Ethyl Alcohol < 10.0 SARS-CoV-2 (PCR) NOT DETECTED 09/15/23 23:09 WBC RBC Hgb Hct MCV MCH MCHC RDW Plt Count MPV Neut # (Auto) Lymph # (Auto) [place] # (Auto) Eos # (Auto) Baso # (Auto) Absolute Nucleated RBC Nucleated RBC % Sodium Potassium Chloride Carbon Dioxide Anion Gap BUN Creatinine Estimated GFR (MDRD) Glucose Calcium Magnesium Total Bilirubin AST ALT Alkaline Phosphatase Total Creatine Kinase Total Protein Albumin Globulin Albumin/Globulin Ratio Lipase Urine HCG, Qual NEGATIVE Salicylates Urine Opiates Screen NEGATIVE Ur Buprenorphine Scrn NEGATIVE Ur Oxycodone Screen NEGATIVE Urine Methadone Screen NEGATIVE Acetaminophen Ur Barbiturates Screen NEGATIVE Ur Tricyclics Screen NEGATIVE Ur Phencyclidine Scrn NEGATIVE Ur Amphetamine Screen NEGATIVE U Methamphetamines Scrn NEGATIVE U Benzodiazepines Scrn NEGATIVE Urine Cocaine Screen NEGATIVE U Cannabinoids Screen NEGATIVE Ur Drug Screen Comment CUTOFF CONC BELOW: Ethyl Alcohol SARS-CoV-2 (PCR) PD Medical Decision Making - ED course Complexity details: reviewed results, considered differential, d/w patient, 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 Afebrile, he medically stable on arrival to the emergency department. No focal lateralizing neurologic deficits. No nuchal Patient was recently seen for headache and discharged on short course Decadron. Labs obtained demonstrated leukocytosis, likely secondary to recent Initiation of Decadron. No signs sepsis or septic infection on physical exam or in any of the laboratory studies performed here in the emergency department. Patient given migraine cocktail including Compazine, Benadryl, Toradol. Reported that her headache improved. During my reevaluation was resting comfortably and enjoying a sandwich. Continue to endorse for suicidal ideation stating that she felt she needed hospitalization. She is medically cleared at this time for evaluation by mental health/social work. Referral is placed for a telemetry behavioral health evaluation. Departure - Departure Forms: PCP List
[2023-09-15 23:25] LABS: BASOPHILS % (AUTO) 0.1 %; HCT - HEMATOCRIT 35.3 % (37.0-47.0); HGB - HEMOGLOBIN 11.4 g/dL (12.0-16.0); LYMPHOCYTES # (AUTO) 0.8 10^3/uL (1.5-3.5); LYMPHOCYTES % (AUTO) 5.6 %; MEAN CORPUSCULAR HEMOGLOBIN 25.4 pg (27.0-31.0); MEAN CORPUSCULAR HGB CONC 32.3 g/dL (32.0-36.0); MEAN CORPUSCULAR VOLUME 78.8 fL (81.0-99.0); MEAN PLATELET VOLUME 8.8 fL (7.9-10.8); MONOCYTES # (AUTO) 0.9 10^3/uL (0.0-1.0); NEUTROPHILS # (AUTO) 12.8 10^3/uL (1.5-6.6); PLT - PLATELET COUNT 267 10^3/uL (130-450); RED BLOOD COUNT 4.48 10^6/uL (4.20-5.40); WHITE BLOOD COUNT 14.6 x10^3/uL (4.8-10.8)
[2023-09-15 23:42] LABS: AMPHETAMINE SCREEN,URINE NEGATIVE (NEGATIVE); BARBITURATE SCREEN,UR NEGATIVE (NEGATIVE); BENZODIAZEPINES SCREEN, URINE NEGATIVE (NEGATIVE); BUPRENORPHINE SCREEN, URINE NEGATIVE (NEGATIVE); COCAINE SCREEN URINE NEGATIVE (NEGATIVE); HCG UR QUAL NEGATIVE; METHADONE SCREEN, URINE NEGATIVE (NEGATIVE); METHAMPHETAMINES SCREEN, URINE NEGATIVE (NEGATIVE); OPIATE SCREEN, URINE NEGATIVE (NEGATIVE); OXYCODONE SCREEN, URINE NEGATIVE (NEGATIVE); THC CANNABINOID SCREEN, URINE NEGATIVE (NEGATIVE); TRICYCLIC ANTIDEPRESSANT,URINE NEGATIVE (NEGATIVE)
[2023-09-15 23:55] LABS: ACETAMINOPHEN 0.1 ug/mL; ALBUMIN 4.2 g/dL (3.2-5.5); ALBUMIN/GLOBULIN RATIO 1.6 (1.0-2.2); ALKALINE PHOSPHATASE 69 IU/L (42-121); ALT ALANINE AMINOTRANSFERASE 15 IU/L (10-60); AST ASPARTATE AMINOTRANSFERASE 12 IU/L (10-42); BILIRUBIN,TOTAL 0.4 mg/dL (0.2-1.0); BUN - BLOOD UREA NITROGEN 11 mg/dL (6-20); CALCIUM 9.5 mg/dL (8.5-10.3); CARBON DIOXIDE - CO2 23 mmol/L (21-32); CHLORIDE 107 mmol/L (101-111); CK- CREATINE KINASE 62 IU/L (30-223); CREATININE 0.5 mg/dL (0.6-1.3); ETOH - ETHANOL < 10.0 mg/dL; GFR - MDRD 156 (>89); GLUCOSE 126 mg/dL (74-104); LIPASE 16 U/L (11-82); MAGNESIUM 1.7 mg/dL (1.7-2.3); POTASSIUM 3.8 mmol/L (3.5-4.5); SODIUM 136 mmol/L (135-145); TOTAL PROTEIN 6.8 g/dL (6.4-8.9)
[2023-09-15 23:57] LABS: SALICYLATE < 1.5 mg/dL
[2023-09-16] MEDS: PROCHLORPERAZINE 10 MG/2 ML VIAL IVP STA (00:28)
[2023-09-16] MEDS: SODIUM CHLORIDE 0.9% 1,000 ML IV STA (00:28)
[2023-09-16] MEDS: KETOROLAC 15 MG/ML VIAL IVP PRN (00:31)
[2023-09-16] MEDS: diphenhydrAMINE INJ 50 MG/ML VIAL IVP STA (00:33)
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
--- NOTE | 2023-09-16 12:11 | ED Physician Documentation ---
ED Addendum - Addendum Addendum: 09/16/23 Patient care assumed at shift change. Patient has been calm and cooperative. She was evaluated by telepsychiatry who recommends outpatient crisis stabilization. Social work was consulted and [place] with social work met with the patient. Arrangements have been made for patient to be taken to the [facility] triage center for further outpatient program by a friend. Departure - Departure Disposition: Home, Self Care Clinical Impression: Depression Qualifiers: Depression Type: unspecified Qualified Code(s): F32.A - Depression, unspecified Condition: Stable Instructions: ED Depression Comments: PLEASE GO TO : [facility] ([facility]) [address] [place] [address] Follow-up with [facility] at [phone] to schedule psychiatric care and counseling. Help is available Speak with someone today 235 Suicide and Crisis Lifeline Hours: Available 24 hours. Forms: PCP List
[2023-09-16 12:45] VITALS: BP 94/57
== END 2023-09-16 12:40 | disposition home or self-care (01) ==
LOC: EDUNIT# → ED 22:13
DX: F32.A Depression, unspecified (principal); R45.851 Suicidal ideations; D72.829 Elevated white blood cell count, unspecified; E78.00 Pure hypercholesterolemia, unspecified; Z79.899 Other long term (current) drug therapy
CPT/HCPCS: 36415; 80053; 80143; 80179; 80306; 81025; 82077; 82550; 83690; 83735; 85025; 87635; 93005; 96374; 96375; 99283; G0427; J1200; Q3014

== ENCOUNTER 2023-09-21 09:53 | Emergency (ER) | payer BC, OTHER ==
[2023-09-21 10:15] VITALS: O2SAT 100
--- NOTE | 2023-09-21 10:41 | ED Physician Documentation ---
PD HPI OPHTHO - Stated complaint Stated Complaint: RT EYE IRRITATION - Chief complaint Chief Complaint: Heent - History obtained from History obtained from: Patient - History of Present Illness Timing - onset: Yesterday Timing - duration: Days (1) Timing - details: Gradual onset, Still present Location: Right Quality / character: Itching, Aching, Throbbing, Sharp Associated symptoms: Redness, Tearing Contributing factors: Other (sleeping more than usual awoke with pain and redness to the eye.) Similar symptoms before: Has not had sx before Recently seen: Clinic - Additional information Additional information: 22-year-old Peter Jack awoke yesterday morning with redness to her right eye. She went in to see someone at the urgent care and was given some Polytrim eyedrops. She states that this morning on awakening her symptoms are worse with worsening redness and crusting. She is unaware of any trauma to her eye but she is taking some new psychiatric medications and is sleeping harder than usual. She feels it is entirely possible that she could have scratched her eye. 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: Ovarian cysts : Chronic bladder infection HEENT: Chronic vision loss Psych: Depression, Anxiety, Post traumatic stress disorder Musculoskeletal: Other Derm: Eczema - Past Surgical History Past Surgical History: Yes General: Appendectomy - Present Medications Home Medications: Ambulatory Orders Medication Instructions Recorded Confirmed ARIPiprazole [Abilify] 5 mg PO DAILY 08/26/23 09/15/23 Fluoxetine HCl [Prozac] 20 mg PO DAILY 08/26/23 09/15/23 hydrOXYzine HCL [Hydroxyzine HCl] 50 mg PO DAILY 08/26/23 09/15/23 traZODone [Desyrel] 50 mg PO HS 08/26/23 09/15/23 Prazosin [Minipress] 1 mg PO HS 09/09/23 09/15/23 Ondansetron Odt [Zofran] 4 mg TL Q6H PRN #10 tablet 09/15/23 09/15/23 Promethazine [Phenergan] 25 mg PO Q6H PRN #10 tab 09/15/23 09/15/23 Sumatriptan Succinate [Imitrex] 50 mg PO Q6H PRN #9 tablet 09/15/23 09/15/23 dexAMETHasone [Decadron] 4 mg PO DAILY #5 tablet 09/15/23 09/15/23 Neomycin/Polymyxin B/Dexametha 0.5 inch RIGHTEYE TID #3.5 gm 09/21/23 [Maxitrol Eye Ointment] - Allergies Allergies/Adverse Reactions: Allergies Allergy/AdvReac Type Severity Reaction Status Date / Time shellfish derived Allergy Anaphylaxis Verified 09/21/23 10:06 morphine AdvReac Nausea Verified 09/21/23 10:06 - Social History Does the pt smoke?: No Smoking Status: Never smoker Does the pt drink ETOH?: Yes Does the pt have substance abuse?: No - Immunizations Immunizations are current?: Yes - POLST Patient has POLST: No PD ED PE NORMAL - Vitals Vital signs reviewed: Yes (Normal) - General General: Alert and oriented X 3, No acute distress, Well developed/nourished - HEENT HEENT: PERRL, EOMI, Other (exam of the right eye shows what appears to be a linear abraision to the lateral inferior margin of the sclera. There is surrounding erythema and scleral injection. There is no exudate. 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, No motor deficit, No sensory deficit, Normal speech Eye Opening: Spontaneous Motor: Obeys Commands Verbal: Oriented GCS Score: 15 - Psych Psych: Normal mood, Normal affect Results - Vitals Vitals: Vital Signs - 24 hr 09/21/23 09/21/23 10:03 11:33 Temperature 36.7 C Heart Rate 87 72 Respiratory 16 18 Rate Blood Pressure 118/78 110/63 O2 Saturation 100 100 Oxygen O2 Source Room air PD Medical Decision Making - ED course Complexity details: considered differential, d/w patient ED course: 22-year-old female with what appears to be a deep scratch to her right eye over the conjunctive a and into the sclera. This appears worse today after starting antibiotic drops and I consulted our microfilm duplicating unit supervisor Dr. oDyle recommended we switch to Maxitrol ophthalmic ointment and expect resolution. Departure - Departure Disposition: 01 Home, Self Care Clinical Impression: Conjunctival laceration Qualifiers: Encounter type: initial encounter Laterality: right Qualified Code(s): S05.31XA - Ocular laceration without prolapse or loss of intraocular tissue, right eye, initial encounter Condition: Stable Instructions: ED Eye Particle Conjunctiva FB Rslv Follow-Up: Chapo Doyle MD [Provider Admit Priv/Credential] - Prescriptions: Neomycin/Polymyxin B/Dexametha [Maxitrol Eye Ointment] 0.5 inch RIGHTEYE TID #3.5 gm Comments: Peter, today it looks like there is a deep scratch in the sclera conjunctiva on the right side. This is expected to heal over several days. I have E scribed some ophthalmic ointment to use in your right eye to the [facility] in [place]. If you do not have significant improvement over the next 2 days follow-up with Dr. Doyle in [place]. Forms: PCP List Discharge Date/Time: 09/21/23 11:39
[2023-09-21] MEDS: PROPARACAINE 0.5% OPHTH DROPS 15 ML RIGHTEYE STA (11:38)
[2023-09-21 11:40] VITALS: BP 110/63
== END 2023-09-21 11:39 | disposition home or self-care (01) ==
LOC: ED 09:53
DX: S05.31XA Ocular laceration without prolapse or loss of intraocular tissue, right eye, initial encounter (principal); X58.XXXA Exposure to other specified factors, initial encounter; E78.00 Pure hypercholesterolemia, unspecified; Z79.899 Other long term (current) drug therapy
CPT/HCPCS: 99283; 99284; J3490

== ENCOUNTER 2023-10-10 18:50 | Outpatient (CLI) | payer BC, OTHER | END 2023-10-10 18:51 | disposition critical access hospital (66) | LOC: EMS 18:50 | DX: G43.909 Migraine, unspecified, not intractable, without status migrainosus (principal); R53.1 Weakness; R20.8 Other disturbances of skin sensation; M54.9 Dorsalgia, unspecified | CPT/HCPCS: A0425; A0429 ==

== ENCOUNTER 2023-10-10 19:09 | Emergency (ER) | payer BC, OTHER ==
[2023-10-10 19:44] VITALS: BP 113/75
--- NOTE | 2023-10-10 19:57 | ED Physician Documentation ---
PD HPI HEADACHE - Stated complaint Stated Complaint: MIGRAINE PAIN, RT SIDE WEAKNESS, FACIAL DROOP - Chief complaint Chief Complaint: Neuro - History obtained from History obtained from: Patient - Additional information Additional information: 23-year-old female with a history of MDD, PTSD, on reported borderline personality disorder presenting from the clinic due to migraine headache as well as report of right-sided weakness. The patient states she has had a headache for several weeks, Reports being seen for it in the past and they gave her some medication to take at the onset of her headache and she took that today and it did not go away. She states this morning when she woke up around 730 she noted that she had some right-sided weakness.. She was seen in the clinic and they sent her over to the ER due to reported facial droop. She has never had a complex migraine, she denies a thunderclap type headache, and states it has been gradual and progressive over the course of the last few weeks. She has not had a fever, no neck stiffness, she does have some lower back pain is chronic, she has no bowel or bladder changes. She was recently started on a number of different medications for her mental health. Patient states she has a headache once every 6 or 7 days that last for several days. She has never seen a neurologist. Review of Systems Constitutional: reports: Reviewed and negative Eyes: reports: Reviewed and negative Ears: reports: Reviewed and negative Nose: reports: Reviewed and negative Throat: reports: Reviewed and negative Cardiac: reports: Reviewed and negative Respiratory: reports: Reviewed and negative : reports: Reviewed and negative Skin: reports: Reviewed and negative Musculoskeletal: reports: Reviewed and negative Neurologic: reports: Focal weakness, Headache Psychiatric: reports: Reviewed and negative Endocrine: reports: Reviewed and negative PD PAST MEDICAL HISTORY - Past Medical History Past Medical History: Yes Cardiovascular: High cholesterol, Murmur Respiratory: None Neuro: Migraines Endocrine/Autoimmune: None GI: None, Diverticulitis, 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: Ovarian cysts : Chronic bladder infection HEENT: Chronic vision loss Psych: Depression, Anxiety, Post traumatic stress disorder Musculoskeletal: Other Derm: Eczema - Past Surgical History Past Surgical History: Yes General: Appendectomy - Present Medications Home Medications: Ambulatory Orders Medication Instructions Recorded Confirmed ARIPiprazole [Abilify] 5 mg PO DAILY 08/26/23 09/15/23 Fluoxetine HCl [Prozac] 20 mg PO DAILY 08/26/23 09/15/23 hydrOXYzine HCL [Hydroxyzine HCl] 50 mg PO DAILY 08/26/23 09/15/23 traZODone [Desyrel] 50 mg PO HS 08/26/23 09/15/23 Prazosin [Minipress] 1 mg PO HS 09/09/23 09/15/23 Ondansetron Odt [Zofran] 4 mg TL Q6H PRN #10 tablet 09/15/23 09/15/23 Promethazine [Phenergan] 25 mg PO Q6H PRN #10 tab 09/15/23 09/15/23 Sumatriptan Succinate [Imitrex] 50 mg PO Q6H PRN #9 tablet 09/15/23 09/15/23 dexAMETHasone [Decadron] 4 mg PO DAILY #5 tablet 09/15/23 09/15/23 Neomycin/Polymyxin B/Dexametha 0.5 inch RIGHTEYE TID #3.5 gm 09/21/23 [Maxitrol Eye Ointment] - Allergies Allergies/Adverse Reactions: Allergies Allergy/AdvReac Type Severity Reaction Status Date / Time shellfish derived Allergy Anaphylaxis Verified 10/10/23 19:19 morphine AdvReac Nausea Verified 10/10/23 19:19 - Social History Does the pt smoke?: No Smoking Status: Never smoker Does the pt drink ETOH?: Yes Does the pt have substance abuse?: No - Immunizations Immunizations are current?: Yes - POLST Patient has POLST: No PD ED PE NORMAL - Vitals Vital signs reviewed: Yes - General General: Alert and oriented X 3, No acute distress, Well developed/nourished - HEENT HEENT: Atraumatic, PERRL, EOMI, Moist mucous membranes - Neck Neck: Supple, no meningeal sign, C-Spine cleared by NEXUS criteria - Cardiac Cardiac: RRR, No murmur - Respiratory Respiratory: No respiratory distress, Clear bilaterally - Abdomen Abdomen: Normal bowel sounds, Soft, Non tender, Non distended - Derm Derm: Normal color, Warm and dry, No rash - Extremities Extremities: No deformity, No tenderness to palpate - Neuro Neuro: Alert and oriented X 3, No sensory deficit, Normal speech, Other (Questionable right facial droop And right-sided weakness on exam.) Eye Opening: Spontaneous Motor: Obeys Commands Verbal: Oriented GCS Score: 15 - Psych Psych: Normal mood, Normal affect Results - Vitals Vitals: Vital Signs - 24 hr 10/10/23 10/10/23 19:15 19:38 Temperature 36.5 C Heart Rate 78 75 Respiratory 15 16 Rate Blood Pressure 121/74 113/75 O2 Saturation 100 100 Oxygen O2 Source Room air PD Medical Decision Making - ED course Complexity details: reviewed old records, reviewed results, re-evaluated patient, considered differential, d/w patient ED course: 23-year-old female who presents with a migraine headache and also reporting right-sided facial droop and right-sided weakness earlier today. She is well- appearing here on physical exam, nontoxic afebrile, her speech is normal, tongue is midline, and when distracted, the patient does not have a facial droop Or right-sided weakness. She initially stating she could not move the right side however when she was woken up from sleep she abruptly moved all extremities well and there was no sign of acute stroke on physical exam. Suspicion for a psychosomatic component however I did obtain a CT scan of her brain though low suspicion for CVA and this is negative. I do not think there is any indication for emergent MRI at this time. The patient received IV fluids, Benadryl, Compazine, Solu-Medrol for her headache with improvement in her symptoms. She was advised to follow-up with her PCP and discuss a possible outpatient referral to neurology given the patient's reported frequency of migraine headaches up to weekly. Departure - Departure Disposition: 01 Home, Self Care Clinical Impression: Migraine headache Qualifiers: Migraine type: migraine (< 15 days per month) with aura Status migrainosus presence: without status migrainosus Intractability: not intractable Qualified Code(s): G43.109 - Migraine with aura, not intractable, without status migrainosus Condition: Good Instructions: ED Headache Migraine Comments: Please follow-up with your primary doctor and consider referral to neurology if you have persistent migraine headaches. Forms: PCP List
[2023-10-10] MEDS: diphenhydrAMINE INJ 50 MG/ML VIAL IVP STA (20:05)
[2023-10-10] MEDS: SODIUM CHLORIDE 0.9% 1,000 ML IV STA (20:05)
[2023-10-10] MEDS: PROCHLORPERAZINE 10 MG/2 ML VIAL IVP STA (20:05)
[2023-10-10] MEDS: methylPREDNISolone SUCCINATE 125 MG/2 ML VIAL IVP STA (20:05)
--- NOTE | 2023-10-10 20:54 | CT Report ---
PROCEDURE: Head WO INDICATIONS: Right sided weakness TECHNIQUE: Noncontrast 4.5 mm thick angled axial sections acquired from the foramen magnum to the vertex. For r adiation dose reduction, the following was used: automated exposure control, adjustment of mA and/or kV according to patient size. COMPARISON: None. FINDINGS: Image quality: Excellent. CSF spaces: Basal cisterns are patent. No extra-axial fluid collections. Ventricles are normal in size and shape. Brain: No midline shift. No intracranial masses or hemorrhage. Hernandez-white matter interface is norm al. Skull and face: Calvarium and visualized facial bones are intact, without suspicious lesions. Sinuses: Visualized sinuses and mastoids are clear. IMPRESSION: No acute intracranial pathology. Reviewed by: Dickson Schaffer MD on 10/10/2023 8:53 PM PDT Approved by: Dickson Schaffer MD on 10/10/2023 8:53 PM PDT Station ID: [id number]
[2023-10-10 21:08] VITALS: O2SAT 98
== END 2023-10-10 21:10 | disposition home or self-care (01) ==
LOC: EDUNIT# → ED 19:09
DX: G43.109 Migraine with aura, not intractable, without status migrainosus (principal); E78.00 Pure hypercholesterolemia, unspecified; Z79.899 Other long term (current) drug therapy
CPT/HCPCS: 96374; 99283

== ENCOUNTER 2023-10-16 16:14 | Emergency (ER) | payer BC, OTHER ==
[2023-10-16 16:47] LABS: BASOPHILS % (AUTO) 0.4 %; EOSINOPHILS # (AUTO) 0.1 10^3/uL (0.0-0.7); EOSINOPHILS % (AUTO) 1.9 %; HCT - HEMATOCRIT 36.6 % (37.0-47.0); HGB - HEMOGLOBIN 11.6 g/dL (12.0-16.0); LYMPHOCYTES # (AUTO) 1.8 10^3/uL (1.5-3.5); LYMPHOCYTES % (AUTO) 26.3 %; MEAN CORPUSCULAR HEMOGLOBIN 24.7 pg (27.0-31.0); MEAN CORPUSCULAR HGB CONC 31.7 g/dL (32.0-36.0); MEAN PLATELET VOLUME 8.7 fL (7.9-10.8); MONOCYTES # (AUTO) 0.6 10^3/uL (0.0-1.0); MONOCYTES % (AUTO) 8.2 %; NEUTROPHILS # (AUTO) 4.4 10^3/uL (1.5-6.6); NEUTROPHILS % (AUTO) 62.9 %; PLT - PLATELET COUNT 227 10^3/uL (130-450); RED BLOOD COUNT 4.69 10^6/uL (4.20-5.40); RED CELL DISTRIBUTION WIDTH 14.4 % (12.0-15.0); WHITE BLOOD COUNT 6.9 x10^3/uL (4.8-10.8)
[2023-10-16 17:02] LABS: ALBUMIN 4.1 g/dL (3.2-5.5); ALBUMIN/GLOBULIN RATIO 1.9 (1.0-2.2); BILIRUBIN,TOTAL 0.3 mg/dL (0.2-1.0); CALCIUM 9.5 mg/dL (8.5-10.3); CREATININE 0.6 mg/dL (0.6-1.3); POTASSIUM 3.7 mmol/L (3.5-4.5); TOTAL PROTEIN 6.3 g/dL (6.4-8.9)
[2023-10-16 17:25] LABS: B. PARAPERTUSSIS- RESP PCR PAN NOT DETECTED; B. PERTUSSIS- RESP PCR PANEL NOT DETECTED; C. PNEUMONIAE- RESP PCR PANEL NOT DETECTED; CORONAVIRUS 229E-RESP PCR NOT DETECTED; CORONAVIRUS HKU1-RESP PCR NOT DETECTED; CORONAVIRUS NL63-RESP PCR NOT DETECTED; CORONAVIRUS OC43-RESP PCR NOT DETECTED; HUMAN METAPNEUMOVIRUS NOT DETECTED; INFLUENZA A- RESP PCR PANEL NOT DETECTED; INFLUENZA B - RESP PCR PANEL NOT DETECTED; M. PNEUMONIAE- RESP PCR PANEL NOT DETECTED; PARAINFLUENZA VIRUS 1 NOT DETECTED; PARAINFLUENZA VIRUS 2 NOT DETECTED; PARAINFLUENZA VIRUS 3 NOT DETECTED; PARAINFLUENZA VIRUS 4 NOT DETECTED; RHINOVIRUS/ENTEROVIRUS NOT DETECTED; RSV- RESP PCR PANEL NOT DETECTED; SARS-CoV-2 -RESP PCR PANEL NOT DETECTED
[2023-10-16 18:53] LABS: BILIRUBIN,URINE NEGATIVE (NEGATIVE); GLUCOSE, URINE (UA) NEGATIVE (NEGATIVE); KETONES,URINE (UA) NEGATIVE (NEGATIVE); LEUKOCYTE ESTERASE, URINE NEGATIVE (NEGATIVE); NITRITE,URINE NEGATIVE (NEGATIVE); OCCULT BLOOD,URINE TRACE-INTA (NEGATIVE); PH,URINE 5.5 PH (5.0-7.5); PROTEIN,URINE NEGATIVE (NEGATIVE); UROBILINOGEN,URINE 0.2 (NORMAL) E.U./dL (NORMAL)
[2023-10-16 18:54] LABS: CLARITY,URINE CLEAR (CLEAR)
[2023-10-16 18:55] LABS: HCG UR QUAL NEGATIVE
--- NOTE | 2023-10-16 19:31 | ED Physician Documentation ---
PD HPI ABD PAIN - Stated complaint Stated Complaint: NAUSEA/LIGHT HEADED - Chief complaint Chief Complaint: Abd Pain - Additional information Additional information: 23-year-old female presents emergency department for nausea no vomiting mild abdominal pain and generalized malaise. 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 : Chronic bladder infection HEENT: Chronic vision loss Psych: Depression, Anxiety, Post traumatic stress disorder Musculoskeletal: Other Derm: Eczema - Past Surgical History Past Surgical History: Yes General: Appendectomy - Present Medications Home Medications: Ambulatory Orders Medication Instructions Recorded Confirmed ARIPiprazole [Abilify] 5 mg PO DAILY 08/26/23 09/15/23 Fluoxetine HCl [Prozac] 20 mg PO DAILY 08/26/23 09/15/23 hydrOXYzine HCL [Hydroxyzine HCl] 50 mg PO DAILY 08/26/23 09/15/23 traZODone [Desyrel] 50 mg PO HS 08/26/23 09/15/23 Prazosin [Minipress] 1 mg PO HS 09/09/23 09/15/23 Ondansetron Odt [Zofran] 4 mg TL Q6H PRN #10 tablet 09/15/23 09/15/23 Promethazine [Phenergan] 25 mg PO Q6H PRN #10 tab 09/15/23 09/15/23 Sumatriptan Succinate [Imitrex] 50 mg PO Q6H PRN #9 tablet 09/15/23 09/15/23 dexAMETHasone [Decadron] 4 mg PO DAILY #5 tablet 09/15/23 09/15/23 Neomycin/Polymyxin B/Dexametha 0.5 inch RIGHTEYE TID #3.5 gm 09/21/23 [Maxitrol Eye Ointment] - Allergies Allergies/Adverse Reactions: Allergies Allergy/AdvReac Type Severity Reaction Status Date / Time shellfish derived Allergy Anaphylaxis Verified 10/16/23 16:23 morphine AdvReac Nausea Verified 10/16/23 16:23 - Social History Does the pt smoke?: No Smoking Status: Never smoker Does the pt drink ETOH?: Yes Does the pt have substance abuse?: No Substance Use and Type: Marijuana - Immunizations Immunizations are current?: Yes - POLST Patient has POLST: No PD ED PE NORMAL - Vitals Vital signs reviewed: Yes - General General: Alert and oriented X 3, No acute distress, Well developed/nourished - HEENT HEENT: Atraumatic, PERRL - Neck Neck: Supple, no meningeal sign, No bony TTP - Cardiac Cardiac: RRR, No murmur, No gallop - Respiratory Respiratory: No respiratory distress, Clear bilaterally - Abdomen Abdomen: Normal bowel sounds, Soft, Non distended, No organomegaly, Other (Right lower quadrant and left lower quadrant tenderness to palpation) - Derm Derm: Normal color, Warm and dry, No rash - Psych Psych: Normal mood, Normal affect Results - Vitals Vitals: Vital Signs - 24 hr 10/16/23 10/16/23 10/16/23 16:23 20:27 21:33 Temperature 36.5 C Heart Rate 119 H 92 73 Respiratory 16 16 16 Rate Blood Pressure 123/66 128/79 109/74 O2 Saturation 99 99 97 Oxygen O2 Source Room air - Labs Labs: Laboratory Tests 10/16/23 10/16/23 10/16/23 16:29 16:44 16:44 WBC 6.9 RBC 4.69 Hgb 11.6 L Hct 36.6 L MCV 78.0 L MCH 24.7 L MCHC 31.7 L RDW 14.4 Plt Count 227 MPV 8.7 Neut # (Auto) 4.4 Lymph # (Auto) 1.8 Hart # (Auto) 0.6 Eos # (Auto) 0.1 Baso # (Auto) 0.0 Absolute Nucleated RBC 0.00 Nucleated RBC % 0.0 Sodium 139 Potassium 3.7 Chloride 107 Carbon Dioxide 25 Anion Gap 7.0 BUN 11 Creatinine 0.6 Estimated GFR (MDRD) 125 Glucose 146 H Calcium 9.5 Total Bilirubin 0.3 AST 10 ALT 9 L Alkaline Phosphatase 69 Total Protein 6.3 L Albumin 4.1 Globulin 2.2 Albumin/Globulin Ratio 1.9 Lipase 20 Urine Color Urine Clarity Urine pH Ur Specific [place] Urine Protein Urine Glucose (UA) Urine Ketones Urine Occult Blood Urine Nitrite Urine Bilirubin Urine Urobilinogen Ur Leukocyte Esterase Ur Microscopic Review Urine Culture Comments Urine HCG, Qual Nasal Adenovirus (PCR) NOT DETECTED Nasal B. parapertussis DNA (PCR) NOT DETECTED Nasal Coronavir 229E PCR NOT DETECTED Nasal Coronavir HKU1 PCR NOT DETECTED Nasal Coronavir NL63 PCR NOT DETECTED Nasal Coronavir OC43 PCR NOT DETECTED Nasal Enterovir/Rhinovir PCR NOT DETECTED Nasal Influenza B PCR NOT DETECTED Nasal Influenza A PCR NOT DETECTED Nasal Parainfluen 1 PCR NOT DETECTED Nasal Parainfluen 2 PCR NOT DETECTED Nasal Parainfluen 3 PCR NOT DETECTED Nasal Parainfluen 4 PCR NOT DETECTED Nasal RSV (PCR) NOT DETECTED Nasal B.pertussis DNA PCR NOT DETECTED Nasal C.pneumoniae (PCR) NOT DETECTED [place] Human Metapneumo PCR NOT DETECTED Nasal M.pneumoniae (PCR) NOT DETECTED Nasal SARS-CoV-2 (PCR) NOT DETECTED 10/16/23 18:35 WBC RBC Hgb Hct MCV MCH MCHC RDW Plt Count MPV Neut # (Auto) Lymph # (Auto) Hart # (Auto) Eos # (Auto) Baso # (Auto) Absolute Nucleated RBC Nucleated RBC % Sodium Potassium Chloride Carbon Dioxide Anion Gap BUN Creatinine Estimated GFR (MDRD) Glucose Calcium Total Bilirubin AST ALT Alkaline Phosphatase Total Protein Albumin Globulin Albumin/Globulin Ratio Lipase Urine Color YELLOW Urine Clarity CLEAR Urine pH 5.5 Ur Specific [place] >=1.030 H Urine Protein NEGATIVE Urine Glucose (UA) NEGATIVE Urine Ketones NEGATIVE Urine Occult Blood TRACE-INTA Urine Nitrite NEGATIVE Urine Bilirubin NEGATIVE Urine Urobilinogen 0.2 (NORMAL) Ur Leukocyte Esterase NEGATIVE Ur Microscopic Review NOT INDICATED Urine Culture Comments NOT INDICATED Urine HCG, Qual NEGATIVE Nasal Adenovirus (PCR) Nasal B. parapertussis DNA (PCR) Nasal Coronavir 229E PCR Nasal Coronavir HKU1 PCR Nasal Coronavir NL63 PCR Nasal Coronavir OC43 PCR Nasal Enterovir/Rhinovir PCR Nasal Influenza B PCR Nasal Influenza A PCR Nasal Parainfluen 1 PCR Nasal Parainfluen 2 PCR Nasal Parainfluen 3 PCR Nasal Parainfluen 4 PCR Nasal RSV (PCR) Nasal B.pertussis DNA PCR Nasal C.pneumoniae (PCR) [place] Human Metapneumo PCR Nasal M.pneumoniae (PCR) Nasal SARS-CoV-2 (PCR) - Rads (name of study) CT abdomen pelvis with Relevant Findings:: Final report received, EMP independent interpretation of test, Other (No acute abdominal or pelvis abnormalities) PD Medical Decision Making - ED course ED course: 23-year-old female presents emergency department for abdominal pain. Labs are complete for further evaluation no leukocytosis mild anemia, hemoglobin 11.6 patient says that she is not currently menstruating negative hCG respiratory swab is negative. Urinalysis is unremarkable electrolytes and chemistry is also unremarkable. We decided to go ahead with a CT scan for further evaluation as patient is quite tender with palpation to her abdominal region CT scan negative for any acute pelvic or abdominal findings. No appendicitis no diverticulitis no other acute normalities. Tylenol ibuprofen given for pain and discomfort as well as some Zofran for her nausea and she did report some alleviation of her symptoms. I do believe the patient is experiencing some sort of viral illness although our respiratory swab was negative. She is told to follow-up with her primary care provider for further evaluation she is given ER return precautions all questions answered patient is safe for discharge. Departure - Departure Disposition: 01 Home, Self Care Clinical Impression: Abdominal pain Instructions: Abdominal Pain Forms: PCP List Discharge Date/Time: 10/16/23 21:34
[2023-10-16] MEDS ORDERED: iohexoL-300 100 ML VIAL ONE (19:33)
[2023-10-16] MEDS: ACETAMINOPHEN 325 MG TABLET PO STA (19:55)
[2023-10-16] MEDS: ONDANSETRON ODT 4 MG TABLET TL STA (19:55)
[2023-10-16] MEDS: iohexoL-300 100 ML VIAL IVP ONE (20:36)
--- NOTE | 2023-10-16 21:09 | CT Report ---
PROCEDURE: Abdomen/Pelvis W INDICATIONS: LLQ pain CONTRAST: 100ml [id number] TECHNIQUE: After the administration of intravenous contrast, a CT scan of the abdomen and pelvis was performed. Images were recorded and evaluated at appropriate window settings. Reformats: coronal and sagittal. F or radiation dose reduction, the following was used: automated exposure control, adjustment of mA and /or kV according to patient size. COMPARISON: None. FINDINGS: Image quality: Diagnostic. Lower chest: Unremarkable. Liver: No solid mass. Gallbladder: No radiopaque stones or wall thickening. Biliary tree: No intrahepatic or extrahepatic dilation, accounting for age. Spleen: No splenomegaly. Pancreas: No pancreatic ductal dilation. Adrenals: No adrenal nodule. Kidneys and ureters: No hydronephrosis. No renal cystic lesion which requires follow up. No solid mas s. Stomach, bowel and peritoneum: No gastric or small bowel dilation. No abnormal wall thickening. No pa thologic free fluid. Small amount of free fluid in the pelvis is likely physiologic. Status post appe ndectomy. Lymph nodes: No central or retroperitoneal adenopathy. Vessels: No infrarenal aortic aneurysm. Patent portal vein. PELVIS Reproductive organs: Unremarkable. Bladder: No abnormal wall thickening, accounting for underdistention. Pelvic lymph nodes: No pelvic adenopathy by size criteria. Bones: No aggressive osseous abnormality. Other: No significant ventral or inguinal hernia. IMPRESSION: No acute abnormality identified in the abdomen or pelvis. Reviewed by: Michael Laird MD on 10/16/2023 9:07 PM PDT Approved by: Michael Laird MD on 10/16/2023 9:07 PM PDT Station ID: [id number]
[2023-10-16 21:36] VITALS: BP 109/74; O2SAT 97
== END 2023-10-16 21:34 | disposition home or self-care (01) ==
LOC: ED 16:14
DX: R10.32 Left lower quadrant pain (principal); D64.9 Anemia, unspecified; Z11.2 Encounter for screening for other bacterial diseases; Z11.52 Encounter for screening for COVID-19; Z11.59 Encounter for screening for other viral diseases; Z32.02 Encounter for pregnancy test, result negative
CPT/HCPCS: 36415; 74177; 80053; 81003; 81025; 83690; 85025; 87633; 99284; A9270; Q0162; Q9967; 81001; 87086

== ENCOUNTER 2023-11-02 16:23 | Emergency (ER) | payer BC, OTHER ==
[2023-11-02 16:51] VITALS: O2SAT 100
--- NOTE | 2023-11-02 16:53 | ED Physician Documentation ---
PD HPI HEADACHE - Stated complaint Stated Complaint: العلي/R SIDE WEAKNESS - Chief complaint Chief Complaint: Heent - History obtained from History obtained from: Patient - History of Present Illness Timing - onset: Today Timing - onset during: Rest Timing - duration: Hours Timing - details: Abrupt onset (onset this moring of headache assoicated with right sided weakness and numbness. Has had smilar with migraines several times. [place]xe Imitrex without improvement. Pt states variable success with the Imitrex. Went to Walk In and referred to ER ffor concern of the unilateral weakness.), Still present Worst headache ever?: No: Worst headache ever? (similar to other migraines.) Location: Right Quality: Throbbing, Aching Associated symptoms: Nausea, Vomiting, Weakness (right arm and leg). No: Fever, Stiff neck, Numbness Improved by: Dark room. No: Meds Worsened by: Light Similar symptoms before: Diagnosis (complex migraines) Review of Systems Constitutional: denies: Fever, Chills Eyes: denies: Loss of vision Cardiac: denies: Chest pain / pressure Respiratory: denies: Cough GI: reports: Nausea, Vomiting. 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: Ovarian cysts : Chronic bladder infection HEENT: Chronic vision loss Psych: Depression, Anxiety, Post traumatic stress disorder Musculoskeletal: Other Derm: Eczema - Past Surgical History Past Surgical History: Yes General: Appendectomy - Present Medications Home Medications: Ambulatory Orders Medication Instructions Recorded Confirmed ARIPiprazole [Abilify] 5 mg PO DAILY 08/26/23 09/15/23 Fluoxetine HCl [Prozac] 20 mg PO DAILY 08/26/23 09/15/23 hydrOXYzine HCL [Hydroxyzine HCl] 50 mg PO DAILY 08/26/23 09/15/23 traZODone [Desyrel] 50 mg PO HS 08/26/23 09/15/23 Prazosin [Minipress] 1 mg PO HS 09/09/23 09/15/23 Ondansetron Odt [Zofran] 4 mg TL Q6H PRN #10 tablet 09/15/23 09/15/23 Promethazine [Phenergan] 25 mg PO Q6H PRN #10 tab 09/15/23 09/15/23 Sumatriptan Succinate [Imitrex] 50 mg PO Q6H PRN #9 tablet 09/15/23 09/15/23 dexAMETHasone [Decadron] 4 mg PO DAILY #5 tablet 09/15/23 09/15/23 Neomycin/Polymyxin B/Dexametha 0.5 inch RIGHTEYE TID #3.5 gm 09/21/23 [Maxitrol Eye Ointment] Ondansetron Odt [Zofran] 4 mg TL Q6H PRN #10 tablet 11/02/23 Rizatriptan Benzoate [Rizatriptan] 5 mg PO Q6H PRN #6 tablet 11/02/23 - Allergies Allergies/Adverse Reactions: Allergies Allergy/AdvReac Type Severity Reaction Status Date / Time shellfish derived Allergy Anaphylaxis Verified 11/02/23 16:44 morphine AdvReac Nausea Verified 11/02/23 16:44 - Social History Does the pt smoke?: No Smoking Status: Never smoker Does the pt drink ETOH?: Yes Does the pt have substance abuse?: No - Immunizations Immunizations are current?: Yes - POLST Patient has POLST: No PD ED PE NORMAL - Vitals Vital signs reviewed: Yes - General General: Alert and oriented X 3, Well developed/nourished - HEENT HEENT: PERRL (light sensitive), EOMI - Neck Neck: Supple, no meningeal sign, No adenopathy - Cardiac Cardiac: RRR, No murmur - Respiratory Respiratory: No respiratory distress, Clear bilaterally - Abdomen Abdomen: Normal bowel sounds, Soft, Non tender - Neuro Neuro: Alert and oriented X 3, 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, No motor deficit, No sensory deficit, Normal speech Results - Vitals Vitals: Vital Signs - 24 hr 11/02/23 11/02/23 16:41 18:44 Temperature 37.0 C 36.9 C Heart Rate 87 82 Respiratory 18 16 Rate Blood Pressure 114/61 112/66 O2 Saturation 100 100 Oxygen O2 Source Room air - Labs Labs: Laboratory Tests 11/02/23 11/02/23 16:49 17:15 WBC 6.7 RBC 4.74 Hgb 12.2 Hct 37.4 MCV 78.9 L MCH 25.7 L MCHC 32.6 RDW 14.9 Plt Count 232 MPV 9.4 Neut # (Auto) 4.7 Lymph # (Auto) 1.2 L [place] # (Auto) 0.6 Eos # (Auto) 0.1 Baso # (Auto) 0.0 Absolute Nucleated RBC 0.00 Nucleated RBC % 0.0 Sodium 136 Potassium 4.0 Chloride 107 Carbon Dioxide 25 Anion Gap 4.0 L BUN 12 Creatinine 0.5 L Estimated GFR (MDRD) 154 Glucose 97 Calcium 9.1 Total Bilirubin 0.4 AST 12 ALT 6 L Alkaline Phosphatase 63 Total Protein 6.2 L Albumin 4.0 Globulin 2.2 Albumin/Globulin Ratio 1.8 Lipase 28 PD Medical Decision Making - ED course Complexity details: re-evaluated patient (العلي and weakness improved with IV fluids, toradol and compazine.), considered differential (has had complex migraines with similar symptoms in the past. ), d/w patient Departure - Departure Disposition: Home, Self Care Clinical Impression: Complicated migraine Condition: Stable Record reviewed to determine appropriate education?: Yes Instructions: ED Headache Migraine Follow-Up: JOSE MATTHEWS ARNP [Primary Care Provider] - Prescriptions: Rizatriptan Benzoate [Rizatriptan] 5 mg PO Q6H PRN #6 tablet PRN Reason: Migraine Ondansetron Odt [Zofran] 4 mg TL Q6H PRN #10 tablet PRN Reason: Nausea / Vomiting Comments: It is good that your symptoms are better and your weakness has improved. This does sound like a complex/complicated migraine and the pattern of it would go along with that. The previous migraine medicine you have been prescribed looks like sumatriptan. You have said it was variably effective. We can try a different one and see if it is more consistently effective. I wrote a prescription for rizatriptan to take as needed with your migraines in conjunction with Zofran/ondansetron for nausea. I see a prior prescription for promethazine/Phenergan and that could be used as well. Along with the triptan for your migraines, you can use Tylenol or ibuprofen as well to help. Follow-up with your primary care if repeated or more frequent episodes. Looks like you are prescribed a medicine called lamotrigine. This actually is used to help reduce the chance for migraines. If you are getting more consistent headaches, they could try increasing from a basic 25 mg to perhaps 37-1/2 or 50 mg. Otherwise stay hydrated and see how you do. Forms: PCP List Discharge Date/Time: 11/02/23 18:46
[2023-11-02 17:00] LABS: BASOPHILS % (AUTO) 0.5 %; EOSINOPHILS # (AUTO) 0.1 10^3/uL (0.0-0.7); EOSINOPHILS % (AUTO) 1.1 %; HCT - HEMATOCRIT 37.4 % (37.0-47.0); HGB - HEMOGLOBIN 12.2 g/dL (12.0-16.0); LYMPHOCYTES # (AUTO) 1.2 10^3/uL (1.5-3.5); LYMPHOCYTES % (AUTO) 18.5 %; MEAN CORPUSCULAR HEMOGLOBIN 25.7 pg (27.0-31.0); MEAN CORPUSCULAR HGB CONC 32.6 g/dL (32.0-36.0); MEAN CORPUSCULAR VOLUME 78.9 fL (81.0-99.0); MEAN PLATELET VOLUME 9.4 fL (7.9-10.8); MONOCYTES # (AUTO) 0.6 10^3/uL (0.0-1.0); MONOCYTES % (AUTO) 9.5 %; NEUTROPHILS # (AUTO) 4.7 10^3/uL (1.5-6.6); NEUTROPHILS % (AUTO) 70.1 %; PLT - PLATELET COUNT 232 10^3/uL (130-450); RED BLOOD COUNT 4.74 10^6/uL (4.20-5.40); RED CELL DISTRIBUTION WIDTH 14.9 % (12.0-15.0); WHITE BLOOD COUNT 6.7 x10^3/uL (4.8-10.8)
[2023-11-02] MEDS: PROCHLORPERAZINE 10 MG/2 ML VIAL IVP STA (17:25)
[2023-11-02] MEDS: SODIUM CHLORIDE 0.9% 1,000 ML IV STA (17:25)
[2023-11-02] MEDS: KETOROLAC 15 MG/ML VIAL IVP STA (17:26)
[2023-11-02] MEDS: DEXAMETHASONE 10 MG/ML VIAL IVP STA (17:28)
[2023-11-02 17:33] LABS: ALBUMIN/GLOBULIN RATIO 1.8 (1.0-2.2); BILIRUBIN,TOTAL 0.4 mg/dL (0.2-1.0); CALCIUM 9.1 mg/dL (8.5-10.3); CREATININE 0.5 mg/dL (0.6-1.3); TOTAL PROTEIN 6.2 g/dL (6.4-8.9)
[2023-11-02 18:49] VITALS: BP 112/66
== END 2023-11-02 18:46 | disposition home or self-care (01) ==
LOC: ED 16:23
DX: G43.009 Migraine without aura, not intractable, without status migrainosus (principal); E78.00 Pure hypercholesterolemia, unspecified; Z79.899 Other long term (current) drug therapy
CPT/HCPCS: 36415; 80053; 83690; 85025; 96374; 96375; 99284

== ENCOUNTER 2023-11-06 19:15 | Emergency (ER) | payer BC, OTHER ==
[2023-11-06 19:53] LABS: BASOPHILS % (AUTO) 0.5 %; EOSINOPHILS # (AUTO) 0.2 10^3/uL (0.0-0.7); EOSINOPHILS % (AUTO) 2.3 %; HCT - HEMATOCRIT 38.4 % (37.0-47.0); HGB - HEMOGLOBIN 12.2 g/dL (12.0-16.0); LYMPHOCYTES # (AUTO) 2.6 10^3/uL (1.5-3.5); LYMPHOCYTES % (AUTO) 39.9 %; MEAN CORPUSCULAR HEMOGLOBIN 24.5 pg (27.0-31.0); MEAN CORPUSCULAR HGB CONC 31.8 g/dL (32.0-36.0); MEAN CORPUSCULAR VOLUME 77.3 fL (81.0-99.0); MEAN PLATELET VOLUME 8.9 fL (7.9-10.8); MONOCYTES # (AUTO) 0.8 10^3/uL (0.0-1.0); MONOCYTES % (AUTO) 11.6 %; NEUTROPHILS % (AUTO) 45.5 %; PLT - PLATELET COUNT 275 10^3/uL (130-450); RED BLOOD COUNT 4.97 10^6/uL (4.20-5.40); RED CELL DISTRIBUTION WIDTH 14.9 % (12.0-15.0); WHITE BLOOD COUNT 6.5 x10^3/uL (4.8-10.8)
[2023-11-06 20:00] LABS: BILIRUBIN,URINE NEGATIVE (NEGATIVE); GLUCOSE, URINE (UA) NEGATIVE (NEGATIVE); KETONES,URINE (UA) NEGATIVE (NEGATIVE); LEUKOCYTE ESTERASE, URINE NEGATIVE (NEGATIVE); NITRITE,URINE NEGATIVE (NEGATIVE); OCCULT BLOOD,URINE NEGATIVE (NEGATIVE); PROTEIN,URINE NEGATIVE (NEGATIVE); UROBILINOGEN,URINE 0.2 (NORMAL) E.U./dL (NORMAL)
[2023-11-06 20:05] LABS: ALBUMIN 4.3 g/dL (3.2-5.5); ALBUMIN/GLOBULIN RATIO 1.6 (1.0-2.2); BILIRUBIN,TOTAL 0.4 mg/dL (0.2-1.0); CALCIUM 9.4 mg/dL (8.5-10.3); CREATININE 0.6 mg/dL (0.6-1.3); POTASSIUM 4.1 mmol/L (3.5-4.5)
[2023-11-06 20:17] LABS: CLARITY,URINE CLEAR (CLEAR)
--- NOTE | 2023-11-06 20:19 | ED Physician Documentation ---
History of Present Illness - Stated complaint Stated Complaint: ABD PX - Chief complaint Chief Complaint: Abd Pain - History obtained from History obtained from: Patient - Additonal information Additional information: 23-year-old female presents stating that her ovarian cyst is uncomfortable. She reports a history of ovarian cyst, Believes she had a surgery on them in April 2023. Per chart review, the patient did have laparoscopic surgery For possible ovarian cyst but found normal ovaries but dilated fallopian tubes and pelvic adhesions. She did not have any ovarian cyst. She is Now having some lower abdominal pressure sensation feels some pressure when she voids but no dysuria, she feels nauseous and has vomited a few times, no diarrhea or constipation, denies any fever or chills, no vaginal bleeding. She is not on any control Method but denies any chance of . She has been taking Tylenol and ibuprofen without relief in her symptoms. 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: Ovarian cysts : Chronic bladder infection HEENT: Chronic vision loss Psych: Depression, Anxiety, Post traumatic stress disorder Musculoskeletal: Other Derm: Eczema - Past Surgical History Past Surgical History: Yes General: Appendectomy - Present Medications Home Medications: Ambulatory Orders Medication Instructions Recorded Confirmed ARIPiprazole [Abilify] 5 mg PO DAILY 08/26/23 09/15/23 hydrOXYzine HCL [Hydroxyzine HCl] 50 mg PO DAILY 08/26/23 09/15/23 Prazosin [Minipress] 1 mg PO HS 09/09/23 09/15/23 Ondansetron Odt [Zofran] 4 mg TL Q6H PRN #10 tablet 11/06/23 - Allergies Allergies/Adverse Reactions: Allergies Allergy/AdvReac Type Severity Reaction Status Date / Time shellfish derived Allergy Anaphylaxis Verified 11/06/23 19:38 morphine AdvReac Nausea Verified 06/26/24 19:38 - Social History Does the pt smoke?: No Smoking Status: Never smoker Does the pt drink ETOH?: Yes Does the pt have substance abuse?: No - Immunizations Immunizations are current?: Yes - POLST Patient has POLST: No PD ED PE NORMAL - Vitals Vital signs reviewed: Yes - General General: Alert and oriented X 3, No acute distress, Well developed/nourished, Other (looking at videos w/ her on her phone, appears comfortable) - HEENT HEENT: Atraumatic, Moist mucous membranes - Cardiac Cardiac: RRR, No murmur - Respiratory Respiratory: No respiratory distress, Clear bilaterally - Abdomen Abdomen: Normal bowel sounds, Soft, Non distended, Other (Mild suprapubic tenderness) - Back Back: No CVA TTP, No spinal TTP - Derm Derm: Normal color, Warm and dry, No rash Results - Vitals Vitals: Vital Signs - 24 hr 11/06/23 11/06/23 19:25 19:50 Temperature 36.8 C Heart Rate 64 66 Respiratory 16 Rate Blood Pressure 107/66 O2 Saturation 100 Oxygen O2 Source Room air - Labs Labs: Laboratory Tests 11/06/23 11/06/23 11/06/23 19:28 19:28 19:47 WBC 6.5 RBC 4.97 Hgb 12.2 Hct 38.4 MCV 77.3 L MCH 24.5 L MCHC 31.8 L RDW 14.9 Plt Count 275 MPV 8.9 Neut # (Auto) 3.0 Lymph # (Auto) 2.6 [place] # (Auto) 0.8 Eos # (Auto) 0.2 Baso # (Auto) 0.0 Absolute Nucleated RBC 0.00 Nucleated RBC % 0.0 Sodium Potassium Chloride Carbon Dioxide Anion Gap BUN Creatinine Estimated GFR (MDRD) Glucose Calcium Total Bilirubin AST ALT Alkaline Phosphatase Total Protein Albumin Globulin Albumin/Globulin Ratio Lipase Urine Color YELLOW Urine Clarity CLEAR Urine pH 6.0 Ur Specific [place] 1.025 Urine Protein NEGATIVE Urine Glucose (UA) NEGATIVE Urine Ketones NEGATIVE Urine Occult Blood NEGATIVE Urine Nitrite NEGATIVE Urine Bilirubin NEGATIVE Urine Urobilinogen 0.2 (NORMAL) Ur Leukocyte Esterase NEGATIVE Ur Microscopic Review NOT INDICATED Urine Culture Comments NOT INDICATED Urine HCG, Qual NEGATIVE 11/06/23 19:47 WBC RBC Hgb Hct MCV MCH MCHC RDW Plt Count MPV Neut # (Auto) Lymph # (Auto) [place] # (Auto) Eos # (Auto) Baso # (Auto) Absolute Nucleated RBC Nucleated RBC % Sodium 138 Potassium 4.1 Chloride 107 Carbon Dioxide 27 Anion Gap 4.0 L BUN 13 Creatinine 0.6 Estimated GFR (MDRD) 125 Glucose 98 Calcium 9.4 Total Bilirubin 0.4 AST 12 ALT 10 Alkaline Phosphatase 68 Total Protein 7.0 Albumin 4.3 Globulin 2.7 Albumin/Globulin Ratio 1.6 Lipase 40 Urine Color Urine Clarity Urine pH Ur Specific [place] Urine Protein Urine Glucose (UA) Urine Ketones Urine Occult Blood Urine Nitrite Urine Bilirubin Urine Urobilinogen Ur Leukocyte Esterase Ur Microscopic Review Urine Culture Comments Urine HCG, Qual PD Medical Decision Making - ED course Complexity details: reviewed results, re-evaluated patient, considered differential, d/w patient ED course: 23-year-old female presents with suprapubic pain as described in HPI. She believes it is related to ovarian cyst however per chart review patient does not have ovarian cyst, normal ovaries on a laparoscopic evaluation in April and normal CT earlier this month. She does have a history of pelvic adhesions however dilated fallopian tube. She appears very well on physical exam, in no acute distress, vital signs are stable she is afebrile. We collected lab work which is unremarkable pending CBC, CMP, urinalysis test. Treated for patient's pain with Zofran, Dilaudid, and Toradol. Patient was feeling substantially better but subsequently got nauseous after receiving the Dilaudid.. No indication for imaging today As there is very low suspicion for ovarian torsion based on her physical exam. Patient to follow-up with [employer] if symptoms persist. Patient vomited as it was discussing her discharge instructions with her. I think likely due to receiving the Dilaudid. She was given some Benadryl only discharged home with as needed Zofran. I do believe the patient remained safe for discharge home. Departure - Departure Clinical Impression: Pelvic pain in female Condition: Good Instructions: ED Pelvic Pain [facility] Prescriptions: Ondansetron Odt [Zofran] 4 mg TL Q6H PRN #10 tablet PRN Reason: Nausea / Vomiting Comments: Your labs and urine test are all reassuring. I think your pain is less likely to be ovarian cysts. When you had your surgery in April they did not see ovarian cysts but found that you did have dilated fallopian tubes and pelvic adhesions. This is likely causing your chronic intermittent pelvic pain. Treatment for this is supportive (ibuprofen, tylenol, heating pad). Please follow up with [employer] if persists. Return to the ER if fever. Forms: PCP List
[2023-11-06 20:37] LABS: HCG UR QUAL NEGATIVE
[2023-11-06] MEDS: HYDROmorphone 1 MG/ML CARPUJECT IVP STA (20:46)
[2023-11-06] MEDS: KETOROLAC 30 MG/ML VIAL IVP STA (20:47)
[2023-11-06] MEDS: ONDANSETRON 4 MG/2 ML VIAL IVP STA (20:47)
[2023-11-06] MEDS: diphenhydrAMINE INJ 50 MG/ML VIAL IVP STA (21:21)
[2023-11-06] MEDS: ONDANSETRON ODT 4 MG Prepack 2 TL PRN (21:21)
[2023-11-06 21:37] VITALS: BP 110/69; O2SAT 98
== END 2023-11-06 21:29 | disposition home or self-care (01) ==
LOC: ED 19:15
DX: R10.2 Pelvic and perineal pain (principal); E78.00 Pure hypercholesterolemia, unspecified; Z79.899 Other long term (current) drug therapy
CPT/HCPCS: 36415; 80053; 81003; 81025; 83690; 85025; 96374; 96375; 99283; 99284; A9270; J1170; J1200; 81001; 87086

== ENCOUNTER 2023-11-18 08:00 | Outpatient (CLI) | payer BC, OTHER ==
[2023-11-18 22:37] LABS: CHLAMYDIA TRACHOMATIS DNA NEGATIVE (NEGATIVE); NEISSERIA GONORRHOEAE DNA NEGATIVE (NEGATIVE)
[2023-11-18 22:47] LABS: BACTERIAL VAGINOSIS DNA POSITIVE (NEGATIVE); CANDIDA GLABRATA DNA NEGATIVE (NEGATIVE); CANDIDA GROUP DNA NEGATIVE (NEGATIVE); CANDIDA KRUSEI DNA NEGATIVE (NEGATIVE); TRICHOMONAS VAGINALIS DNA NEGATIVE (NEGATIVE)
== END 2023-11-18 23:59 | disposition home or self-care (01) ==
LOC: LAB.WC 08:00
PROVIDERS: ATTEND Obstetrics & Gynecology
DX: Z11.3 Encounter for screening for infections with a predominantly sexual mode of transmission (principal)
CPT/HCPCS: 81514; 87491; 87591; 87661

== ENCOUNTER 2023-12-01 14:27 | Emergency (ER) | payer BC, OTHER ==
[2023-12-01 14:52] VITALS: BP 104/62; O2SAT 100
== END 2023-12-01 16:28 | disposition left against medical advice (07) ==
LOC: ED 14:27
DX: Z53.21 Procedure and treatment not carried out due to patient leaving prior to being seen by health care provider (principal)